=== PATIENT | male | born 1990 | race Caucasian/White ===

== ENCOUNTER 2019-06-20 11:37 | Emergency (ER) | payer OTHER ==
[~2019-06-20] VITALS: Ht 182.9 cm; Wt 83.9 kg
[2019-06-20] MEDS ORDERED: Naprosyn500 MG PO (12:48)
[2019-06-20] MEDS ORDERED: CYCL10 PO (12:48)
== END 2019-06-20 13:00 | disposition home or self-care (01) ==
LOC: ER 11:37
DX: M62.830 Muscle spasm of back (principal); E11.9 Type 2 diabetes mellitus without complications; F17.210 Nicotine dependence, cigarettes, uncomplicated
CPT/HCPCS: 72100; 99283-25

== ENCOUNTER 2019-09-25 18:21 | Emergency (ER) | payer OTHER ==
[~2019-09-25] VITALS: Ht 182.9 cm; Wt 83.9 kg
[~2019-09-25 18:21] MED LIST: CYCL10 PO; Naprosyn500 MG PO
[2019-09-25] MEDS ORDERED: Humalog100 UNIT/3 SC (18:32)
[2019-09-25] MEDS ORDERED: Monodox100 MG PO (20:01)
== END 2019-09-25 20:08 | disposition home or self-care (01) ==
LOC: ER 18:21
DX: L02.212 Cutaneous abscess of back [any part, except buttock and flank] (principal); L03.312 Cellulitis of back [any part except buttock and flank]; L98.429 Non-pressure chronic ulcer of back with unspecified severity; E11.9 Type 2 diabetes mellitus without complications; F17.210 Nicotine dependence, cigarettes, uncomplicated; Z79.4 Long term (current) use of insulin
CPT/HCPCS: 10061; 87070; 87075; 87077; 87186; 87205; 99283-25; A9270-GY

== ENCOUNTER 2019-09-27 08:57 | Emergency (ER) | payer OTHER ==
[~2019-09-27] VITALS: Ht 182.9 cm; Wt 84.4 kg
[~2019-09-27 08:57] MED LIST changes: +Humalog100 UNIT/3 SC; +Monodox100 MG PO
== END 2019-09-27 10:05 | disposition home or self-care (01) ==
LOC: ER 08:57
DX: M86.8X1 Other osteomyelitis, shoulder (principal); Z79.4 Long term (current) use of insulin; E11.9 Type 2 diabetes mellitus without complications; F17.210 Nicotine dependence, cigarettes, uncomplicated
CPT/HCPCS: 99282

== ENCOUNTER 2020-02-26 21:22 | Emergency (ER) | payer OTHER ==
[~2020-02-26] VITALS: Ht 188 cm; Wt 81.7 kg
[2020-02-26 21:55] LABS: BASOPHILS ABSOLUTE AUTO 0.05 K/mm3 (0.00-0.23); BASOPHILS PERCENT AUTO 0 % (0-2); EOSINOPHILS ABSOLUTE AUTO 0.08 K/mm3 (0.00-0.68); EOSINOPHILS PERCENT AUTO 1 % (0-6); Hemoglobin 17.8 g/dL (13.5-17.5); IMMATURE GRAN ABSOLUTE AUTO 0.03 K/mm3 (0.00-0.10); IMMATURE GRAN PERCENT AUTO 0 % (0-1); LYMPHOCYTES ABSOLUTE AUTO 2.75 K/mm3 (0.84-5.20); LYMPHOCYTES PERCENT AUTO 22 % (21-46); MONOCYTES ABSOLUTE AUTO 0.84 K/mm3 (0.16-1.47); MONOCYTES PERCENT AUTO 7 % (4-13); Mean Corpuscular HGB Conc 34.9 g/dL (31.5-36.5); Mean Corpuscular Volume 86 fL (80-100); Mean Platelet Volume 10.8 fL (9.1-12.4); NEUTROPHILS ABSOLUTE AUTO 8.53 K/mm3 (1.96-9.15); NEUTROPHILS PERCENT AUTO 70 % (41-73); Platelet Count 163 K/mm3 (150-400); RDW Coefficient Variation 12.7 % (11.7-14.2); RDW Standard Deviation 39.4 fL (35.1-46.3); Red Blood Cell Count 5.94 M/mm3 (4.30-5.90); White Blood Cell Count 12.28 K/mm3 (4.00-11.30)
[2020-02-26 22:12] LABS: Alanine Aminotransfer (ALT/SGP 29 U/L (12-78); Albumin, Blood 4.5 g/dL (3.4-5.0); Albumin/Globulin Ratio 1.2 (0.8-1.8); Alk Phos 102 U/L (50-136); Anion Gap 7 mmol/L (6-16); Aspartate Aminotrans (AST/SGOT 13 U/L (12-37); Beta-hydroxybutyrate 12.8 mg/dL (0.2-2.8); Blood Urea Nitrogen 18 mg/dL (8-24); Bun/Creatinine Ratio 23.9 (12.0-20.0); CO2, Blood 23 mmol/L (21-32); Calcium, Blood 9.6 mg/dL (8.5-10.1); Chloride, Blood 105 mmol/L (98-108); Creatinine, Blood 0.75 mg/dL (0.60-1.20); Globulin, Blood 3.7 g/dL (2.2-4.0); Glomerular Filtration Rate >60 (60-); Glucose, Blood 274 mg/dL (70-99); Potassium, Blood 4.3 mmol/L (3.5-5.5); Sodium, Blood 135 mmol/L (136-145); Total Protein, Blood 8.2 g/dL (6.4-8.2)
[2020-02-26] MEDS ORDERED: [UNRECOGNIZED DRUG - OTHER] SC (22:38)
[2020-02-26] MEDS ORDERED: Humalog100 UNIT/3 SC (22:38)
[2020-02-26] MEDS ORDERED: METO5A PO (22:38)
[2020-02-26] MEDS ORDERED: LANCET 30G-GLU1 EACH TOP (22:38)
== END 2020-02-26 23:11 | disposition home or self-care (01) ==
LOC: ER 21:22
PROVIDERS: Physician Assistant
DX: E11.65 Type 2 diabetes mellitus with hyperglycemia (principal); K31.84 Gastroparesis; F17.210 Nicotine dependence, cigarettes, uncomplicated
CPT/HCPCS: 36415; 80053; 82010; 82947; 85025; 96361; 96374; 96375; 99284-25; J2405; J2765; J7030

== ENCOUNTER → 2020-06-03 | Outpatient (CLI) | payer OTHER ==
[~2020-06-03] MED LIST changes: +LANCET 30G-GLU1 EACH TOP; +METO5A PO; +[UNRECOGNIZED DRUG - OTHER] SC
== END | disposition home or self-care (01) ==
LOC: LAB 12:15 → LAB SHORT 12:15 → LAB FUT 05-30 12:55
DX: R19.7 Diarrhea, unspecified (principal)
CPT/HCPCS: 87015; 87045; 87046; 87177; 87205; 87209; 87899

== ENCOUNTER 2020-07-10 19:34 | Inpatient (IN) | payer OTHER ==
[~2020-07-10] VITALS: Ht 185.4 cm; Wt 83.5 kg
[2020-07-10] MEDS ORDERED: MELO7.5 PO (19:58)
[2020-07-10 20:08] LABS: BASOPHILS ABSOLUTE AUTO 0.05 K/mm3 (0.00-0.23); BASOPHILS PERCENT AUTO 0 % (0-2); EOSINOPHILS ABSOLUTE AUTO 0.05 K/mm3 (0.00-0.68); EOSINOPHILS PERCENT AUTO 0 % (0-6); IMMATURE GRAN ABSOLUTE AUTO 0.04 K/mm3 (0.00-0.10); IMMATURE GRAN PERCENT AUTO 0 % (0-1); LYMPHOCYTES ABSOLUTE AUTO 1.76 K/mm3 (0.84-5.20); LYMPHOCYTES PERCENT AUTO 12 % (21-46); MONOCYTES PERCENT AUTO 9 % (4-13); Mean Corpuscular HGB 30.7 pg (26.0-34.0); Mean Corpuscular HGB Conc 35.4 g/dL (31.5-36.5); Mean Corpuscular Volume 87 fL (80-100); Mean Platelet Volume 10.9 fL (9.1-12.4); NEUTROPHILS ABSOLUTE AUTO 11.12 K/mm3 (1.96-9.15); NEUTROPHILS PERCENT AUTO 78 % (41-73); Platelet Count 150 K/mm3 (150-400); RDW Coefficient Variation 12.1 % (11.7-14.2); RDW Standard Deviation 37.9 fL (35.1-46.3); Red Blood Cell Count 5.54 M/mm3 (4.30-5.90); White Blood Cell Count 14.32 K/mm3 (4.00-11.30)
[2020-07-10 20:25] LABS: Alanine Aminotransfer (ALT/SGP 29 U/L (12-78); Albumin, Blood 4.2 g/dL (3.4-5.0); Albumin/Globulin Ratio 1.2 (0.8-1.8); Alk Phos 108 U/L (50-136); Anion Gap 6 mmol/L (6-16); Aspartate Aminotrans (AST/SGOT 16 U/L (12-37); Blood Urea Nitrogen 13 mg/dL (8-24); Bun/Creatinine Ratio 17.6 (12.0-20.0); CO2, Blood 27 mmol/L (21-32); Calcium, Blood 9.2 mg/dL (8.5-10.1); Chloride, Blood 102 mmol/L (98-108); Creatinine, Blood 0.74 mg/dL (0.60-1.20); Globulin, Blood 3.5 g/dL (2.2-4.0); Glomerular Filtration Rate >60 (60-); Glucose, Blood 250 mg/dL (70-99); Sodium, Blood 135 mmol/L (136-145); Total Protein, Blood 7.7 g/dL (6.4-8.2)
[2020-07-10] MEDS ORDERED: Mobic15 MG PO (21:24)
[2020-07-10] MEDS ORDERED: GLYBURIDE-METF1 EACH PO (21:25)
[2020-07-10] MEDS ORDERED: HUMALOG KW100 UNIT/1 SC (21:26)
[2020-07-11 03:49] LABS: Source, Urine Clean Catch
[2020-07-11 04:05] LABS: Bilirubin, Urine Neg (Neg); Blood, Urine 1+ (Neg); Glucose Qualitative, Urine 4+ (Neg); Ketones, Urine Neg (Neg); Leukocyte Esterase, Urine Neg (Neg); Nitrite, Urine Neg (Neg); Protein, Urine 1+ (Neg); Urobilinogen, Urine NORM (Normal)
[2020-07-11 04:19] LABS: Appearance, Urine Clear (Clear); Color, Urine Yellow (P-Yellow)
[2020-07-11 04:20] LABS: Bacteria Not Seen /hpf; Red Blood Cells, Urine Rare /hpf (0-2); Squamous Epithelial Cells Not Seen /hpf (Few); White Blood Cells, Urine Not Seen /hpf (0-5)
--- NOTE | 2020-07-11 06:44 | NUR ---
PT ARRIVED TO ROOM @ 2480 07/10/2020 VIA STRETCHER, ORIENTED TO ROOM, CALL LIGHT IN REACH, ADMISSION BEING PERFORMED.
--- NOTE | 2020-07-11 07:00 | NUR ---
SHIFT SUMMARY ACUTE APPENDICITIS, A/O X4, VSS, INDEPENDENT IN ROOM, NPO SINCE MIDNIGHT FOR PROCEDURE, PAIN CONTROLLED W/ DILAUDID PER EMAR. ORIENTED TO ROOM, CALL LIGHT IN REACH. WILL CONTINUE TO MONITOR AND REPORT TO ONCOMING DAY RN.
--- NOTE | 2020-07-11 09:53 | NUR ---
PT TRANSPORTED TO [facility]. AGREES WITH PLANNED PROCEDURE. PT ANXIOUS AND TEARFUL. LUNG SOUNDS CLEAR.
--- NOTE | 2020-07-11 14:18 | NUR ---
POST OP: REPORT RECEIVED FROM LAURA, RADIOISOTOPE TECHNOLOGIST. PT TO UNIT AT 1330, VSS, DROWSY, AWAKENS TO VOICE. SURGICAL SITES WNL. ABOUT TO TAKE IN ICE CHIPS. WILL CTM
--- NOTE | 2020-07-11 15:20 | NUR ---
07/11/20 1520 Savana Hawk VERIFICATIONS: EDIT CHART.
--- NOTE | 2020-07-11 16:34 | NUR ---
SUMMARY: NO ACUTE CHANGE SINCE POST OP. PT ABLE TO TOLERATE PO, HAS TAKEN A WALK IN THE [place]. REPORTS PAIN /, MEDICATED. NO N/V. SURGICAL SITES WNL. WILL REPORT TO BASIL EASON.
--- NOTE | 2020-07-12 06:25 | NUR ---
SUMMARY PT WOKE THIS AM WITH C/O INCREASE PAIN R SIDED AND BACK.PT WITH CHRONIC BACK ISSUES,WHICH HE TAKES ANTI INFLAMMATORIES FOR AT HOME.I GAVE TORADOL AND DILAUDID WITH PT VERB IMRPOVEMNT AND SLEEPING AT THIS TIME.
[2020-07-12 06:59] LABS: Hematocrit 40.3 % (37.0-53.0); Hemoglobin 13.8 g/dL (13.5-17.5)
[2020-07-12] MEDS ORDERED: OXAYDO5 MG PO (08:38)
[2020-07-12] MEDS ORDERED: ACET500 PO (09:44)
--- NOTE | 2020-07-12 12:30 | NUR ---
DISCHARGE PT EDUCATED ON AND RECEIVED PRINTED DISCHARGE INSTRUCTIONS AND VERBALIZED AN UNDERSTANDING. HARD RX FOR OXYCODONE GIVEN TO PT. IV DC'D. PT LEFT WITH ALL PERSONAL BELONGINGS AND DISCHARGED HOME.
[2020-07-13] MEDS ORDERED: Zofran4 MG PO (17:41)
== END 2020-07-12 12:31 | disposition home or self-care (01) | DRG 343 ==
LOC: ER 19:34 → SURS 19:35
PROVIDERS: Emergency Medicine; Physician Assistant; Surgery; ADMIT Surgery
PROC: 0DTJ4ZZ Resection of Appendix, Percutaneous Endoscopic Approach (ICD-10-PCS; principal; 2020-07-11 10:00)
DX: K35.80 Unspecified acute appendicitis (principal); Z20.828 Contact with and (suspected) exposure to other viral communicable diseases; E11.9 Type 2 diabetes mellitus without complications; M19.90 Unspecified osteoarthritis, unspecified site; F17.210 Nicotine dependence, cigarettes, uncomplicated; Z79.4 Long term (current) use of insulin; Z79.1 Long term (current) use of non-steroidal anti-inflammatories (NSAID)
CPT/HCPCS: 36415; 71046; 74176; 80053; 81001; 82947; 85014; 85018; 85025; 96374-59; 96375-59; 96376-59; 99285-25; A9270-GY; J1100; J1170; J1885; J2060; J2250; J2405; J2543; J2704; J2710; J2765; J3010; J7030; J7120; U0002

== ENCOUNTER 2020-07-13 14:08 | Emergency (ER) | payer OTHER ==
[~2020-07-13] VITALS: Ht 185.4 cm; Wt 83.5 kg
[~2020-07-13 14:08] MED LIST changes: +ACET500 PO; +GLYBURIDE-METF1 EACH PO; +HUMALOG KW100 UNIT/1 SC; +MELO7.5 PO; +Mobic15 MG PO; +OXAYDO5 MG PO
[2020-07-13 14:48] LABS: BASOPHILS ABSOLUTE AUTO 0.03 K/mm3 (0.00-0.23); BASOPHILS PERCENT AUTO 0 % (0-2); EOSINOPHILS ABSOLUTE AUTO 0.07 K/mm3 (0.00-0.68); EOSINOPHILS PERCENT AUTO 1 % (0-6); Hematocrit 45.3 % (37.0-53.0); Hemoglobin 15.5 g/dL (13.5-17.5); IMMATURE GRAN ABSOLUTE AUTO 0.03 K/mm3 (0.00-0.10); IMMATURE GRAN PERCENT AUTO 0 % (0-1); LYMPHOCYTES PERCENT AUTO 16 % (21-46); MONOCYTES ABSOLUTE AUTO 1.27 K/mm3 (0.16-1.47); MONOCYTES PERCENT AUTO 10 % (4-13); Mean Corpuscular HGB 30.3 pg (26.0-34.0); Mean Corpuscular HGB Conc 34.2 g/dL (31.5-36.5); Mean Corpuscular Volume 89 fL (80-100); Mean Platelet Volume 10.7 fL (9.1-12.4); NEUTROPHILS PERCENT AUTO 72 % (41-73); Platelet Count 145 K/mm3 (150-400); RDW Coefficient Variation 12.2 % (11.7-14.2); Red Blood Cell Count 5.12 M/mm3 (4.30-5.90)
[2020-07-13 15:01] LABS: Alanine Aminotransfer (ALT/SGP 30 U/L (12-78); Albumin, Blood 3.6 g/dL (3.4-5.0); Albumin/Globulin Ratio 0.9 (0.8-1.8); Alk Phos 94 U/L (50-136); Anion Gap 5 mmol/L (6-16); Aspartate Aminotrans (AST/SGOT 18 U/L (12-37); Blood Urea Nitrogen 12 mg/dL (8-24); Bun/Creatinine Ratio 20.9 (12.0-20.0); CO2, Blood 29 mmol/L (21-32); Calcium, Blood 9.7 mg/dL (8.5-10.1); Chloride, Blood 105 mmol/L (98-108); Creatinine, Blood 0.57 mg/dL (0.60-1.20); Globulin, Blood 4.1 g/dL (2.2-4.0); Glomerular Filtration Rate >60 (60-); Glucose, Blood 167 mg/dL (70-99); Potassium, Blood 3.8 mmol/L (3.5-5.5); Sodium, Blood 139 mmol/L (136-145); Total Protein, Blood 7.7 g/dL (6.4-8.2)
[2020-07-13 16:39] LABS: Source, Urine Clean Catch
[2020-07-13 16:42] LABS: Appearance, Urine Clear (Clear); Bilirubin, Urine Neg (Neg); Blood, Urine 1+ (Neg); Color, Urine Yellow (P-Yellow); Glucose Qualitative, Urine 4+ (Neg); Ketones, Urine 3+ (Neg); Leukocyte Esterase, Urine Neg (Neg); Nitrite, Urine Neg (Neg); Protein, Urine 1+ (Neg); Urobilinogen, Urine NORM (Normal); pH, Urine 6.5 (5.0-8.0)
[2020-07-13 16:52] LABS: Bacteria Few /hpf; Red Blood Cells, Urine 0-2 /hpf (0-2); Squamous Epithelial Cells Not Seen /hpf (Few); White Blood Cells, Urine 0-2 /hpf (0-5)
[2020-07-13] MEDS ORDERED: Zofran4 MG PO (17:41)
== END 2020-07-13 18:02 | disposition home or self-care (01) ==
LOC: ER 14:08
PROVIDERS: Emergency Medicine; Physician Assistant
DX: G89.18 Other acute postprocedural pain (principal); R10.9 Unspecified abdominal pain; R11.0 Nausea; E11.9 Type 2 diabetes mellitus without complications; Z79.899 Other long term (current) drug therapy; Z79.4 Long term (current) use of insulin
CPT/HCPCS: 36415; 74177; 80053; 81001; 83690; 85025; 96374; 96375; 96376; 99284-25; J1170; J1885; J2405; Q9967

== ENCOUNTER 2021-01-07 02:06 | Emergency (ER) | payer OTHER ==
[~2021-01-07] VITALS: Ht 185.4 cm; Wt 78.9 kg
[~2021-01-07 02:06] MED LIST changes: +AMOCLA875 PO; +Zofran4 MG PO
[2021-01-07 04:03] LABS: BASOPHILS ABSOLUTE AUTO 0.05 K/mm3 (0.00-0.23); BASOPHILS PERCENT AUTO 0 % (0-2); EOSINOPHILS ABSOLUTE AUTO 0.03 K/mm3 (0.00-0.68); EOSINOPHILS PERCENT AUTO 0 % (0-6); Hematocrit 54.7 % (37.0-53.0); Hemoglobin 19.2 g/dL (13.5-17.5); IMMATURE GRAN ABSOLUTE AUTO 0.07 K/mm3 (0.00-0.10); IMMATURE GRAN PERCENT AUTO 0 % (0-1); LYMPHOCYTES ABSOLUTE AUTO 2.16 K/mm3 (0.84-5.20); LYMPHOCYTES PERCENT AUTO 12 % (21-46); MONOCYTES ABSOLUTE AUTO 1.39 K/mm3 (0.16-1.47); MONOCYTES PERCENT AUTO 8 % (4-13); Mean Corpuscular HGB 29.9 pg (26.0-34.0); Mean Corpuscular HGB Conc 35.1 g/dL (31.5-36.5); Mean Corpuscular Volume 85 fL (80-100); Mean Platelet Volume 11.1 fL (9.1-12.4); NEUTROPHILS PERCENT AUTO 79 % (41-73); Platelet Count 198 K/mm3 (150-400); RDW Coefficient Variation 12.7 % (11.7-14.2); RDW Standard Deviation 38.9 fL (35.1-46.3); Red Blood Cell Count 6.42 M/mm3 (4.30-5.90)
[2021-01-07 04:22] LABS: Albumin/Globulin Ratio 1.2 (0.8-1.8); Bilirubin, Total 2.5 mg/dL (0.1-1.0); Bun/Creatinine Ratio 26.1 (12.0-20.0); Calcium, Blood 10.7 mg/dL (8.5-10.1); Creatinine, Blood 1.53 mg/dL (0.60-1.20); Globulin, Blood 4.2 g/dL (2.2-4.0); Potassium, Blood 4.2 mmol/L (3.5-5.5); Total Protein, Blood 9.2 g/dL (6.4-8.2)
[2021-01-07] MEDS ORDERED: ONDA4ODT MM (06:17)
[2021-01-08] MEDS ORDERED: CIPR500 PO (22:18)
[2021-01-08] MEDS ORDERED: PROM25 PO (22:20)
[2021-02-25] MEDS ORDERED: GLYBURIDE-METF1 EACH PO (14:16)
[2021-03-01] MEDS ORDERED: METO5A PO (13:53)
[2021-03-01] MEDS ORDERED: CLINDAMYCIN HCL75 MG PO (13:56)
[2021-03-01] MEDS ORDERED: OMEP20ER PO (13:57)
[2021-04-08] MEDS ORDERED: CEPH500 PO (19:35)
[2021-04-08] MEDS ORDERED: ONDA4ODT MM (19:35)
[2021-04-08] MEDS ORDERED: Reglan10 MG PO (21:37)
== END 2021-01-07 06:39 | disposition home or self-care (01) ==
LOC: ER 02:06
PROVIDERS: Student in an Organized Health Care Education/Training Program
DX: R10.9 Unspecified abdominal pain (principal); R11.2 Nausea with vomiting, unspecified; E86.0 Dehydration; E11.9 Type 2 diabetes mellitus without complications; F17.210 Nicotine dependence, cigarettes, uncomplicated
CPT/HCPCS: 36415; 74177; 80053; 82947; 83690; 85025; 96361; 96374-59; 96375; 99284-25; J1790; J2270; J2405; J7030; Q9967

== ENCOUNTER 2021-01-08 20:34 | Emergency (ER) | payer OTHER ==
[~2021-01-08] VITALS: Ht 185.4 cm; Wt 72.6 kg
[~2021-01-08 20:34] MED LIST changes: +ONDA4ODT MM
[2021-01-08 21:10] LABS: BASOPHILS ABSOLUTE AUTO 0.04 K/mm3 (0.00-0.23); BASOPHILS PERCENT AUTO 0 % (0-2); EOSINOPHILS ABSOLUTE AUTO 0.04 K/mm3 (0.00-0.68); EOSINOPHILS PERCENT AUTO 0 % (0-6); Hematocrit 51.1 % (37.0-53.0); Hemoglobin 18.6 g/dL (13.5-17.5); IMMATURE GRAN ABSOLUTE AUTO 0.04 K/mm3 (0.00-0.10); IMMATURE GRAN PERCENT AUTO 0 % (0-1); LYMPHOCYTES ABSOLUTE AUTO 3.05 K/mm3 (0.84-5.20); LYMPHOCYTES PERCENT AUTO 26 % (21-46); MONOCYTES ABSOLUTE AUTO 1.29 K/mm3 (0.16-1.47); MONOCYTES PERCENT AUTO 11 % (4-13); Mean Corpuscular HGB 30.2 pg (26.0-34.0); Mean Corpuscular HGB Conc 36.4 g/dL (31.5-36.5); Mean Corpuscular Volume 83 fL (80-100); Mean Platelet Volume 10.7 fL (9.1-12.4); NEUTROPHILS PERCENT AUTO 63 % (41-73); Platelet Count 198 K/mm3 (150-400); RDW Coefficient Variation 12.4 % (11.7-14.2); RDW Standard Deviation 37.2 fL (35.1-46.3); Red Blood Cell Count 6.16 M/mm3 (4.30-5.90); White Blood Cell Count 11.86 K/mm3 (4.00-11.30)
[2021-01-08 21:32] LABS: Alanine Aminotransfer (ALT/SGP 22 U/L (12-78); Albumin, Blood 4.6 g/dL (3.4-5.0); Albumin/Globulin Ratio 1.2 (0.8-1.8); Alk Phos 104 U/L (50-136); Anion Gap 13 mmol/L (6-16); Aspartate Aminotrans (AST/SGOT 11 U/L (12-37); Beta-hydroxybutyrate 9.6 mg/dL (0.2-2.8); Bilirubin, Total 2.6 mg/dL (0.1-1.0); Blood Urea Nitrogen 52 mg/dL (8-24); Bun/Creatinine Ratio 34.7 (12.0-20.0); CO2, Blood 24 mmol/L (21-32); Calcium, Blood 9.4 mg/dL (8.5-10.1); Chloride, Blood 92 mmol/L (98-108); Ethanol (Alcohol), Blood, Med <3 mg/dL; Globulin, Blood 3.7 g/dL (2.2-4.0); Glomerular Filtration Rate 58 (60-); Glucose, Blood 377 mg/dL (70-99); Magnesium, Blood 2.5 mg/dL (1.6-2.4); Potassium, Blood 4.2 mmol/L (3.5-5.5); Sodium, Blood 129 mmol/L (136-145); Total Protein, Blood 8.3 g/dL (6.4-8.2)
[2021-01-08] MEDS ORDERED: CIPR500 PO (22:18)
[2021-01-08] MEDS ORDERED: PROM25 PO (22:20)
[2021-02-25] MEDS ORDERED: GLYBURIDE-METF1 EACH PO (14:16)
[2021-03-01] MEDS ORDERED: METO5A PO (13:53)
[2021-03-01] MEDS ORDERED: CLINDAMYCIN HCL75 MG PO (13:56)
[2021-03-01] MEDS ORDERED: OMEP20ER PO (13:57)
[2021-04-08] MEDS ORDERED: ONDA4ODT MM (19:35)
[2021-04-08] MEDS ORDERED: CEPH500 PO (19:35)
[2021-04-08] MEDS ORDERED: Reglan10 MG PO (21:37)
== END 2021-01-08 23:04 | disposition home or self-care (01) ==
LOC: ER 20:34
PROVIDERS: Emergency Medicine
DX: E11.43 Type 2 diabetes mellitus with diabetic autonomic (poly)neuropathy (principal); K31.84 Gastroparesis; E11.65 Type 2 diabetes mellitus with hyperglycemia; E86.0 Dehydration; F17.210 Nicotine dependence, cigarettes, uncomplicated
CPT/HCPCS: 80053; 82010; 83690; 83735; 84145; 85025; 96361; 96374; 96375; 99283-25; G0480; J1200; J1630; J7120

== ENCOUNTER → 2021-02-18 | Outpatient (CLI) | payer OTHER ==
[~2021-02-18] MED LIST changes: +Bactrim Ds Tab1 EACH PO; +CEPH500 PO; +CIPR500 PO; +PROM25 PO
[2021-02-18 18:57] LABS: BASOPHILS ABSOLUTE AUTO 0.03 K/mm3 (0.00-0.23); BASOPHILS PERCENT AUTO 0 % (0-2); EOSINOPHILS PERCENT AUTO 2 % (0-6); Hemoglobin 15.6 g/dL (13.5-17.5); IMMATURE GRAN ABSOLUTE AUTO 0.04 K/mm3 (0.00-0.10); IMMATURE GRAN PERCENT AUTO 0 % (0-1); LYMPHOCYTES ABSOLUTE AUTO 1.87 K/mm3 (0.84-5.20); LYMPHOCYTES PERCENT AUTO 15 % (21-46); MONOCYTES ABSOLUTE AUTO 0.95 K/mm3 (0.16-1.47); MONOCYTES PERCENT AUTO 8 % (4-13); Mean Corpuscular HGB 30.1 pg (26.0-34.0); Mean Corpuscular HGB Conc 34.7 g/dL (31.5-36.5); Mean Corpuscular Volume 87 fL (80-100); Mean Platelet Volume 11.9 fL (9.1-12.4); NEUTROPHILS ABSOLUTE AUTO 9.27 K/mm3 (1.96-9.15); NEUTROPHILS PERCENT AUTO 75 % (41-73); Platelet Count 147 K/mm3 (150-400); RDW Coefficient Variation 12.6 % (11.7-14.2); RDW Standard Deviation 39.8 fL (35.1-46.3); Red Blood Cell Count 5.18 M/mm3 (4.30-5.90); White Blood Cell Count 12.36 K/mm3 (4.00-11.30)
[2021-02-18 20:22] LABS: Alanine Aminotransfer (ALT/SGP 24 U/L (12-78); Albumin/Globulin Ratio 1.2 (0.8-1.8); Alk Phos 101 U/L (50-136); Amylase, Blood 55 U/L (25-115); Anion Gap 4 mmol/L (6-16); Aspartate Aminotrans (AST/SGOT 9 U/L (12-37); Bilirubin, Total 0.8 mg/dL (0.1-1.0); Blood Urea Nitrogen 14 mg/dL (8-24); Bun/Creatinine Ratio 20.9 (12.0-20.0); CO2, Blood 27 mmol/L (21-32); Calcium, Blood 9.1 mg/dL (8.5-10.1); Chloride, Blood 103 mmol/L (98-108); Creatinine, Blood 0.67 mg/dL (0.60-1.20); Globulin, Blood 3.2 g/dL (2.2-4.0); Glomerular Filtration Rate >60 (60-); Glucose, Blood 328 mg/dL (70-99); Sodium, Blood 134 mmol/L (136-145); Total Protein, Blood 7.2 g/dL (6.4-8.2)
== END | disposition home or self-care (01) ==
LOC: LAB SHORT 13:28
PROVIDERS: Family Medicine
DX: K85.90 Acute pancreatitis without necrosis or infection, unspecified (principal); R10.9 Unspecified abdominal pain
CPT/HCPCS: 36415; 80053; 82150; 83690; 85025

== ENCOUNTER 2021-02-21 08:00 | Emergency (ER) | payer OTHER ==
[~2021-02-21] VITALS: Ht 185.4 cm; Wt 82.5 kg
[~2021-02-21 08:00] MED LIST changes: -Bactrim Ds Tab1 EACH PO; -CEPH500 PO
[2021-02-21] MEDS ORDERED: Bactrim Ds Tab1 EACH PO (08:30)
[2021-02-21] MEDS ORDERED: CEPH500 PO (08:30)
[2021-02-25] MEDS ORDERED: GLYBURIDE-METF1 EACH PO (14:16)
== END 2021-02-21 09:11 | disposition home or self-care (01) ==
LOC: ER 08:00
DX: M54.6 Pain in thoracic spine (principal); E11.9 Type 2 diabetes mellitus without complications; F17.210 Nicotine dependence, cigarettes, uncomplicated
CPT/HCPCS: 10060; 99282-25

== ENCOUNTER 2021-04-10 07:37 | Inpatient (IN) | payer OTHER ==
[~2021-04-10] VITALS: Ht 185.4 cm; Wt 77.2 kg
[~2021-04-10 07:37] MED LIST changes: +Bactrim Ds Tab1 EACH PO; +CEPH500 PO; +CLINDAMYCIN HCL75 MG PO; +OMEP20ER PO; +Reglan10 MG PO
[2021-04-10] MEDS ORDERED: BASAGLAR K100 UNIT/1 SC (07:46)
[2021-04-10 08:20] LABS: BASOPHILS ABSOLUTE AUTO 0.07 K/mm3 (0.00-0.23); BASOPHILS PERCENT AUTO 1 % (0-2); EOSINOPHILS PERCENT AUTO 0 % (0-6); Hematocrit 54.2 % (37.0-53.0); Hemoglobin 19.6 g/dL (13.5-17.5); IMMATURE GRAN ABSOLUTE AUTO 0.05 K/mm3 (0.00-0.10); IMMATURE GRAN PERCENT AUTO 0 % (0-1); LYMPHOCYTES ABSOLUTE AUTO 2.19 K/mm3 (0.84-5.20); LYMPHOCYTES PERCENT AUTO 15 % (21-46); MONOCYTES ABSOLUTE AUTO 1.26 K/mm3 (0.16-1.47); MONOCYTES PERCENT AUTO 9 % (4-13); Mean Corpuscular HGB 29.9 pg (26.0-34.0); Mean Corpuscular HGB Conc 36.2 g/dL (31.5-36.5); Mean Corpuscular Volume 83 fL (80-100); Mean Platelet Volume 10.6 fL (9.1-12.4); NEUTROPHILS ABSOLUTE AUTO 11.32 K/mm3 (1.96-9.15); NEUTROPHILS PERCENT AUTO 76 % (41-73); Platelet Count 202 K/mm3 (150-400); RDW Coefficient Variation 12.1 % (11.7-14.2); Red Blood Cell Count 6.55 M/mm3 (4.30-5.90); White Blood Cell Count 14.89 K/mm3 (4.00-11.30)
[2021-04-10 08:46] LABS: Albumin, Blood 5.6 g/dL (3.4-5.0); Albumin/Globulin Ratio 1.3 (0.8-1.8); Bilirubin, Total 1.8 mg/dL (0.1-1.0); Bun/Creatinine Ratio 16.9 (12.0-20.0); Calcium, Blood 11.3 mg/dL (8.5-10.1); Creatinine, Blood 3.43 mg/dL (0.60-1.20); Globulin, Blood 4.4 g/dL (2.2-4.0)
[2021-04-10 08:47] LABS: Potassium, Blood 6.8 mmol/L (3.5-5.5)
[2021-04-10 09:52] LABS: Magnesium, Blood 2.8 mg/dL (1.6-2.4)
[2021-04-10 09:56] LABS: Phosphorus, Blood 8.9 mg/dL (2.5-4.9)
[2021-04-10 10:31] LABS: Source, Urine Clean Catch
[2021-04-10 10:39] LABS: Appearance, Urine Clear (Clear); Bilirubin, Urine Neg (Neg); Blood, Urine 2+ (Neg); Color, Urine Yellow (P-Yellow); Glucose Qualitative, Urine 4+ (Neg); Ketones, Urine Neg (Neg); Leukocyte Esterase, Urine Neg (Neg); Nitrite, Urine Neg (Neg); Protein, Urine 2+ (Neg); Specific Gravity, Urine 1.015 (1.003-1.022); Urobilinogen, Urine NORM (Normal)
[2021-04-10 10:56] LABS: Bacteria Few /hpf
[2021-04-10 11:02] LABS: Squamous Epithelial Cells Few /hpf (Few); White Blood Cells, Urine 0-2 /hpf (0-5)
[2021-04-10 11:04] LABS: Amorphous Light (0-Heavy)
[2021-04-10 11:05] LABS: Other Crystals Few /hpf
[2021-04-10 11:08] LABS: U Amphetamine Screen Not Detected; U Barbituate Screen Not Detected; U Benzodiazapine Screen Not Detected; U Buprenorphine Screen Not Detected; U Cannabinoids Screen Not Detected; U Cocaine Screen Not Detected; U Methadone Screen Not Detected; U Methamphetamine Screen Not Detected; U Opiates Screen Not Detected; U Oxycodone Screen Not Detected; U Phencyclidine Screen Not Detected; U Propoxyphene Screen Not Detected
[2021-04-10 14:31] LABS: Bun/Creatinine Ratio 24.8 (12.0-20.0); Creatinine, Blood 2.26 mg/dL (0.60-1.20)
[2021-04-10 14:32] LABS: Potassium, Blood 4.4 mmol/L (3.5-5.5)
--- NOTE | 2021-04-10 18:33 | NUR ---
SHIFT NOTE PT ARRIVED FROM ER CRYING AND MOANING LOUDLY SHOUTING THAT HE NEEDED "MORE PAIN MEDICATION" PROVIDER WAS CALLED AND 1 ADDITIONAL DOSE OF FENTANYL WAS ORDERED TO AVOID NARCOTICS CAUSING ADDITIONAL NAUSEA. PT SHOUTING "FUCK THAT" WHEN EDUCATED THAT HE WILL RECIEVE ONE ADDITIONAL DOSE OF FENTANYL. PT BEGINS THEN SHOUTING "I WANT A FUCKING SHOWER" BUT DEMONSTRATED AN UNSTEADY GAIT. PT MEDICATED FOR VOMITTING THEN FALLS ASLEEP, PT AWOKE AND IMMEDIATELY REQUESTS PAIN MEDICATION AND NAUSEA MEDICATION, PT OFFERED TYLENOL WHICH HE ACCEPTED AND AGAIN TREATED FOR NAUSEA AND FELL ASLEEP. PT AWOKE AND CONTINUED SCREAMING AND CURSING AT MULTIPLE STAFF MEMBERS. PT WAS ASSISTED TO USE THE URINAL WHICH HE AGAIN DEMONSTRATED AN UNSTEADY GAIT PT REMINDED THAT THIS IS WHY HE HAS NOT BEEN PLACED IN THE SHOWER HE IS A FALL RISK, PT AGAIN BEGINS SCREAMING "I WANT A FUCKING SHOWER"
[2021-04-10 21:36] LABS: Source, Urine Clean Catch
[2021-04-10 21:41] LABS: Bilirubin, Urine Neg (Neg); Blood, Urine 1+ (Neg); Glucose Qualitative, Urine 4+ (Neg); Ketones, Urine Neg (Neg); Leukocyte Esterase, Urine Neg (Neg); Nitrite, Urine Neg (Neg); Protein, Urine 2+ (Neg); Urobilinogen, Urine NORM (Normal)
[2021-04-10 21:47] LABS: Appearance, Urine Clear (Clear); Color, Urine Yellow (P-Yellow)
[2021-04-10 21:48] LABS: Amorphous Light (0-Heavy); Bacteria Rare /hpf; Red Blood Cells, Urine Rare /hpf (0-2); Squamous Epithelial Cells Rare /hpf (Few); White Blood Cells, Urine Not Seen /hpf (0-5)
[2021-04-10 22:11] LABS: U Amphetamine Screen Not Detected; U Barbituate Screen Not Detected; U Benzodiazapine Screen Not Detected; U Buprenorphine Screen Not Detected; U Cannabinoids Screen Not Detected; U Cocaine Screen Not Detected; U Methadone Screen Not Detected; U Methamphetamine Screen Not Detected; U Opiates Screen Not Detected; U Oxycodone Screen Not Detected; U Phencyclidine Screen Not Detected; U Propoxyphene Screen Not Detected
[2021-04-11 03:54] LABS: BASOPHILS ABSOLUTE AUTO 0.04 K/mm3 (0.00-0.23); BASOPHILS PERCENT AUTO 0 % (0-2); EOSINOPHILS ABSOLUTE AUTO 0.02 K/mm3 (0.00-0.68); EOSINOPHILS PERCENT AUTO 0 % (0-6); Hematocrit 45.9 % (37.0-53.0); Hemoglobin 16.4 g/dL (13.5-17.5); IMMATURE GRAN ABSOLUTE AUTO 0.05 K/mm3 (0.00-0.10); IMMATURE GRAN PERCENT AUTO 0 % (0-1); LYMPHOCYTES ABSOLUTE AUTO 2.86 K/mm3 (0.84-5.20); LYMPHOCYTES PERCENT AUTO 22 % (21-46); MONOCYTES ABSOLUTE AUTO 1.08 K/mm3 (0.16-1.47); MONOCYTES PERCENT AUTO 9 % (4-13); Mean Corpuscular HGB 30.1 pg (26.0-34.0); Mean Corpuscular HGB Conc 35.7 g/dL (31.5-36.5); Mean Corpuscular Volume 84 fL (80-100); Mean Platelet Volume 10.7 fL (9.1-12.4); NEUTROPHILS ABSOLUTE AUTO 8.73 K/mm3 (1.96-9.15); NEUTROPHILS PERCENT AUTO 68 % (41-73); Platelet Count 165 K/mm3 (150-400); RDW Coefficient Variation 12.5 % (11.7-14.2); RDW Standard Deviation 38.4 fL (35.1-46.3); Red Blood Cell Count 5.44 M/mm3 (4.30-5.90); White Blood Cell Count 12.78 K/mm3 (4.00-11.30)
[2021-04-11 04:22] LABS: Magnesium, Blood 2.2 mg/dL (1.6-2.4)
[2021-04-11 04:25] LABS: Alanine Aminotransfer (ALT/SGP 17 U/L (12-78); Albumin/Globulin Ratio 1.2 (0.8-1.8); Alk Phos 80 U/L (50-136); Anion Gap 6 mmol/L (6-16); Aspartate Aminotrans (AST/SGOT 3 U/L (12-37); Bilirubin, Total 1.4 mg/dL (0.1-1.0); Blood Urea Nitrogen 42 mg/dL (8-24); Bun/Creatinine Ratio 35.3 (12.0-20.0); CO2, Blood 26 mmol/L (21-32); Calcium, Blood 8.5 mg/dL (8.5-10.1); Chloride, Blood 100 mmol/L (98-108); Creatinine, Blood 1.19 mg/dL (0.60-1.20); Globulin, Blood 3.3 g/dL (2.2-4.0); Glomerular Filtration Rate >60 (60-); Glucose, Blood 260 mg/dL (70-99); Phosphorus, Blood 2.9 mg/dL (2.5-4.9); Potassium, Blood 4.1 mmol/L (3.5-5.5); Sodium, Blood 132 mmol/L (136-145); Total Protein, Blood 7.3 g/dL (6.4-8.2)
--- NOTE | 2021-04-11 05:50 | NUR ---
SHIFT SUMMARY PT REMAINED STABLE, NO ACUTE CHANGES THIS SHIFT. PT'S GLUCOSE CONTINUES TO IMPROVE, MONITORED EVERY 4 HRS. NO TREATMENT INDICATED PER EMAR. PT REPORTED NAUSEA, AND ABD PAIN THAT WAS RELIEVED WITH ANTI-NAUSEA MEDICATION, SEE EMAR. VSS. A&O X4. DENIES CHEST PAIN OR DIZZINESS. PT WANTS TO STAND UP AND INDEPENDENTLY SHOWER, BUT FOR SAFETY (DUE TO DIZZINESS AND UNSTEADINESS) HE IS BEDREST WITH BED ALARM ON. PT BECAME ANGRY WITH STAFF WHEN HIS WISHES FOR AN INDEPENDENT SHOWER WERE NOT MET. FLUIDS INFUSING INTO IV, PER EMAR. CALL LIGHT IN HAND, WILL CONTINUE TO MONITOR.
--- NOTE | 2021-04-11 12:49 | NUR ---
RECEIVED CARE FOR PATIENT THIS RN RECEIVED PT ON MEDICAL UNIT AT 1245. PT IS SLEEPING WITH RESPIRATIONS E/U. PT SETTLED IN ROOM. CALL LIGHT IN REACH, BED IN LOW POSITION. THIS RN WILL CONTINUE TO MONITOR PT.
--- NOTE | 2021-04-11 17:52 | NUR ---
SHIFT SUMMARY PT IS AOX4. PT MEDICATED FOR PAIN X3 THIS SHIFT. PT MEDICATED FOR NAUSEA X4 THIS SHIFT. PT DENIES SOB. PT IS SBA TO INDEPENDENT IN ROOM. APPETITE IS POOR. PT REPORTEDLY SLEPT THROUGH LUNCH AND HAD MINIMAL DINNER INTAKE. NO PROCEDURES DONE THIS SHIFT. PLAN IS FOR POTENTIAL DC TOMORROW. PT TOLERATED ORAL PAIN MEDICATION THIS GAIL. PT DID NOT HAVE VISITORS IN. PT IS IN BED, CALL LIGHT IN REACH, BED IN LOW POSITION.
[2021-04-12 05:03] LABS: Anion Gap 4 mmol/L (6-16); Blood Urea Nitrogen 24 mg/dL (8-24); Bun/Creatinine Ratio 31.2 (12.0-20.0); CO2, Blood 28 mmol/L (21-32); Calcium, Blood 8.1 mg/dL (8.5-10.1); Chloride, Blood 104 mmol/L (98-108); Creatinine, Blood 0.77 mg/dL (0.60-1.20); Glomerular Filtration Rate >60 (60-); Glucose, Blood 145 mg/dL (70-99); Potassium, Blood 3.8 mmol/L (3.5-5.5); Sodium, Blood 136 mmol/L (136-145)
--- NOTE | 2021-04-12 05:47 | NUR ---
INVERTER AND CLIPPER SUMMARY PT A/O X4. SHOWERED OVERNIGHT. MEDICATED FOR NAUSEA ONCE OVERNIGHT. MEDICATED FOR PAIN X2 OVERNIGHT. PT EDUCATED TO TRY TO TAPER OFF OF IV DILAUDID TONIGHT, PT ENDED UP REQUESTING FOR THIS AFTER ORAL PAIN MED DIDN'T HELP HIM. PT SLEPT WELL TONIGHT. VSS. ROOM AIR, MAINTAINING GOOD SATS. CALL LIGHT WITHIN REACH, WILL CONTINUE TO MONITOR.
--- NOTE | 2021-04-12 18:29 | NUR ---
SHIFT SUMMARY PT RESTING QUIETLY AT START OF SHIFT. WOKE EASILY FOR CARE. C/O BACK PAIN; MEDICATED PER EMAR. PT LATER C/O NAUSEA; MEDICATED THRU OUT THE DAY PER PT REQUEST. PT UP TO SHOWER A COUPLE OF TIMES, REPORTING HOT SHOWERS HELP WITH NAUSEA. HEATING PAD ON ALL DAY, REFILLED WITH WATER. MEDICATED FOR C/O BACK PAIN THRU OUT THE DAY PER EMAR. DR VILLATORO HERE A COUPLE OF TIMES TO CHECK ON PT. MEDICATIONS ADJUSTED. CBG'S MOSTLY STABLE; SEE CHART. PT DRINKING WELL; IVF'S D/C'D. PT STILL UNSURE IF HE WANTS DIET ADVANCED OF YET. UP TO BTHRM INDEPENDENTLY. PT REPORTED 2 BM'S THIS SHIFT. PT PRESENTLY RESTING QUIETLY WITH TV ON. CALL LT IN REACH.
--- NOTE | 2021-04-12 22:22 | NUR ---
DIET ADVANCED PT EXPRESSED TO RN HE IS READY TO ADVANCE HIS DIET "TIRED OF DRINKING FLUIDS ALL THE TIME". PT'S NAUSEA IS TOLERABLE BUT IS NOT EXACERBATED BY FLUIDS. HOSPITALIST TIA NOTIFIED. DIET HAS BEEN ADVANCED TO ADA DIET. BLOOD SUGARS CHANGED TO AC. PT HAD AN HALF A SANDWICH AND TOLERATED WELL. WILL CONTINUE TO MONITOR.
--- NOTE | 2021-04-13 06:23 | NUR ---
IT SERVICE TECHNICIAN SUMMARY PT A/O X4. INDEPENDENT IN ROOM. PT ATE A SANDWICH TONIGHT AND TOLERATED IT WELL. NAUSEA WAS TOLERABLE. PT CONTINUES TO HAVE ABD PAIN. MEDICATED ONCE WITH ORAL PAIN MED AND ONCE WITH IV PAIN MED. PT AT FIRST ASKED TO HAVE IV DILAUDID BEFORE ORAL PAIN MED WAS GIVEN HE SAID THE ORAL ONE WOULDN'T WORK FAST ENOUGH. THIS RN EDUCATED PT TO TRY ORAL ONE FIRST BECAUSE HE WON'T HAVE AN IV WHEN HE GOES HOME. PT AGREED TO HAVE ORAL DIALUDID FIRST WHICH HELPED WITH PAIN FOR A LITTLE AWHILE. PT EXPRESSED TO NURSE THAT HE IS READY TO GO HOME TODAY. SLEPT WELL, CALL LIGHT WITHIN REACH, WILL GIVE REPORT TO ONCOMING NURSE.
[2021-04-13] MEDS ORDERED: HYDMOR2 PO (10:59)
[2021-04-13] MEDS ORDERED: ONDA4ODT MM (11:00)
--- NOTE | 2021-04-13 12:09 | NUR ---
PT IS A&O, SITTING UP IN BED THIS AM. PT FEELING MUCH BETTER AND WANTING FOOD. PT TOLERATED REG ADA DIET DURING THE NIGHT AND REQUESTED REG ADA DIET THIS AM WELL. PT WANTING TO GO HOME TODAY. DR VILLATORO HERE TO SEE PT AND DISCUSS PLAN OF CARE. INSULIN AND MONITORING CBG'S DISCUSSED; PT VERBALIZED UNDERSTANDING. D/C ORDERS PLACED. [facility]. HARD SCRIPT ALSO PROVIDED FOR DILAUDID; COPY OF SCRIPT PLACED ON FRONT OF CHART. D/C INSTRUCTIONS DISCUSSED WITH PT AND GIVEN. PT CALLED HIS DAD FOR RIDE HOME.
== END 2021-04-13 11:10 | disposition home or self-care (01) | DRG 74 ==
LOC: ER 07:37 → PCU 10:36 → MEDS 10:36 → PCU 12:36 → MEDS 04-11 12:36
PROVIDERS: Emergency Medicine; Nurse Practitioner Acute Care; ADMIT Internal Medicine
DX: E11.43 Type 2 diabetes mellitus with diabetic autonomic (poly)neuropathy (principal); N17.9 Acute kidney failure, unspecified; E87.2 Acidosis; R65.10 Systemic inflammatory response syndrome (SIRS) of non-infectious origin without acute organ dysfunction; E87.1 Hypo-osmolality and hyponatremia; E87.5 Hyperkalemia; E86.0 Dehydration; F17.210 Nicotine dependence, cigarettes, uncomplicated; E83.39 Other disorders of phosphorus metabolism; K31.84 Gastroparesis; E11.65 Type 2 diabetes mellitus with hyperglycemia; M19.90 Unspecified osteoarthritis, unspecified site; Z86.14 Personal history of Methicillin resistant Staphylococcus aureus infection; Z90.49 Acquired absence of other specified parts of digestive tract; Z79.4 Long term (current) use of insulin; Z79.899 Other long term (current) drug therapy; Z22.322 Carrier or suspected carrier of Methicillin resistant Staphylococcus aureus
CPT/HCPCS: 36415; 71045; 74177; 80048; 80053; 81001; 82150; 82550; 82570; 82947; 83036; 83605; 83690; 83735; 84100; 84300; 84550; 85025; 87040; 87077; 87086; 87186; 93005; 93010; 94760; 96361; 96365; 96365-59; 96375; 99284-25; 99285-25; A9270; J0295; J0610; J0690; J1170; J1644; J1815; J2405; J2550; J2765; J3010; J7030; Q9967

== ENCOUNTER 2021-05-08 09:32 | Inpatient (IN) | payer OTHER ==
[~2021-05-08] VITALS: Ht 185.4 cm; Wt 81.9 kg
[~2021-05-08 09:32] MED LIST changes: +BASAGLAR K100 UNIT/1 SC; +HYDMOR2 PO
[2021-05-08 09:55] LABS: Calcium, Ionized (POC) 1.04 mmol/L (1.10-1.46); Chloride (POC) 87 mmol/L (98-108); Creatinine (POC) 4.4 mg/dL (0.8-1.3); Glucose (ISTAT POC) 625 mg/dL (70-99); Hemoglobin (POC) 20.1 g/dL (13.5-17.5); Potassium (POC) 6.3 mmol/L (3.5-5.5); Sodium (POC) 124 mmol/L (135-148); Total CO2 (POC) 25 mmol/L (21-32)
[2021-05-08 09:58] LABS: BASOPHILS ABSOLUTE AUTO 0.05 K/mm3 (0.00-0.23); BASOPHILS PERCENT AUTO 0 % (0-2); EOSINOPHILS PERCENT AUTO 0 % (0-6); Hematocrit 53.4 % (37.0-53.0); IMMATURE GRAN ABSOLUTE AUTO 0.12 K/mm3 (0.00-0.10); IMMATURE GRAN PERCENT AUTO 1 % (0-1); LYMPHOCYTES ABSOLUTE AUTO 1.55 K/mm3 (0.84-5.20); LYMPHOCYTES PERCENT AUTO 9 % (21-46); MONOCYTES ABSOLUTE AUTO 1.22 K/mm3 (0.16-1.47); MONOCYTES PERCENT AUTO 7 % (4-13); Mean Corpuscular HGB 30.5 pg (26.0-34.0); Mean Corpuscular HGB Conc 35.6 g/dL (31.5-36.5); Mean Corpuscular Volume 86 fL (80-100); Mean Platelet Volume 11.6 fL (9.1-12.4); NEUTROPHILS ABSOLUTE AUTO 15.38 K/mm3 (1.96-9.15); NEUTROPHILS PERCENT AUTO 84 % (41-73); Platelet Count 193 K/mm3 (150-400); RDW Coefficient Variation 13.3 % (11.7-14.2); RDW Standard Deviation 40.4 fL (35.1-46.3); Red Blood Cell Count 6.23 M/mm3 (4.30-5.90); White Blood Cell Count 18.32 K/mm3 (4.00-11.30)
[2021-05-08 10:21] LABS: Beta-hydroxybutyrate 6.4 mg/dL (0.2-2.8)
[2021-05-08 10:24] LABS: Albumin, Blood 5.2 g/dL (3.4-5.0); Albumin/Globulin Ratio 1.1 (0.8-1.8); Bilirubin, Total 1.5 mg/dL (0.1-1.0); Bun/Creatinine Ratio 8.2 (12.0-20.0); Calcium, Blood 11.4 mg/dL (8.5-10.1); Creatinine, Blood 4.02 mg/dL (0.60-1.20); Globulin, Blood 4.8 g/dL (2.2-4.0); Potassium, Blood 6.1 mmol/L (3.5-5.5)
[2021-05-08 10:51] LABS: CPK Creatine Kinase 67 U/L (39-308)
[2021-05-08 12:07] LABS: Source, Urine Clean Catch
[2021-05-08 12:39] LABS: Appearance, Urine Clear (Clear); Bilirubin, Urine Neg (Neg); Blood, Urine 2+ (Neg); Color, Urine Yellow (P-Yellow); Glucose Qualitative, Urine 4+ (Neg); Ketones, Urine Neg (Neg); Leukocyte Esterase, Urine Neg (Neg); Nitrite, Urine Neg (Neg); Protein, Urine 3+ (Neg); Urobilinogen, Urine NORM (Normal)
[2021-05-08 12:54] LABS: Adenovirus Not Detected (NOT DETECT); Bordetella pertussis Not Detected (NOT DETECT); Chlamydophila pneumoniae Not Detected (NOT DETECT); Coronavirus 229E Not Detected (NOT DETECT); Coronavirus HKU1 Not Detected (NOT DETECT); Coronavirus NL63 Not Detected (NOT DETECT); Coronavirus OC43 Not Detected (NOT DETECT); Human Metapneumovirus Not Detected (NOT DETECT); Human Rhinovirus/Enterovirus Not Detected (NOT DETECT); Influenza A/2009-H1 Not Detected (NOT DETECT); Influenza A/H1 Not Detected (NOT DETECT); Influenza A/H3 Not Detected (NOT DETECT); Influenza B Not Detected (NOT DETECT); Mycoplasma pneumoniae Not Detected (NOT DETECT); Parainfluenza Virus 1 Not Detected (NOT DETECT); Parainfluenza Virus 2 Not Detected (NOT DETECT); Parainfluenza Virus 3 Not Detected (NOT DETECT); Parainfluenza Virus 4 Not Detected (NOT DETECT); Respiratory Syncytial Virus Not Detected (NOT DETECT); SARS-Cov-2 (COVID-19), BioFire Not Detected (NOT DETECT)
[2021-05-08 13:04] LABS: Bacteria Few /hpf; Mucus Light (0-Heavy); Squamous Epithelial Cells Few /hpf (Few)
[2021-05-08 14:54] LABS: Bun/Creatinine Ratio 12.1 (12.0-20.0); Calcium, Blood 9.6 mg/dL (8.5-10.1); Creatinine, Blood 3.14 mg/dL (0.60-1.20); Potassium, Blood 4.3 mmol/L (3.5-5.5)
[2021-05-08 17:24] LABS: U Amphetamine Screen Not Detected; U Barbituate Screen Not Detected; U Benzodiazapine Screen Not Detected; U Buprenorphine Screen Not Detected; U Cannabinoids Screen DETECTED; U Cocaine Screen Not Detected; U Methadone Screen Not Detected; U Methamphetamine Screen Not Detected; U Opiates Screen Not Detected; U Oxycodone Screen Not Detected; U Phencyclidine Screen Not Detected; U Propoxyphene Screen Not Detected
--- NOTE | 2021-05-08 18:24 | NUR ---
SHIFT SUMMARY; ER ADMIT DURING SHIFT. A/A/OX4, MOVES FROM ER GURNEY TO BED WITHOUT DIFFICULTY. NS INFUSING AT 150ML/HR. INSULIN PER EMAR. NO EMESIS DURING SHIFT. FALLS ASLEEP SHORTLY AFTER ARRIVAL AND SLEEPS THROUGHOUT AFTERNOON. TELEPHONE CALL TO DR. SOLO IN EVENING REGARDING ABD PAIN AND LEG CRAMPS. VERBAL ORDER GIVEN FOR ONE TIME GI COCKTAIL AND 1MG ATIVAN IV. VSS, WILL CONTINUE TO MONITOR AND TREAT UNTIL CHANGE OF SHIFT.
[2021-05-09 04:38] LABS: BASOPHILS ABSOLUTE AUTO 0.04 K/mm3 (0.00-0.23); BASOPHILS PERCENT AUTO 0 % (0-2); EOSINOPHILS ABSOLUTE AUTO 0.06 K/mm3 (0.00-0.68); EOSINOPHILS PERCENT AUTO 1 % (0-6); Hematocrit 43.6 % (37.0-53.0); Hemoglobin 15.4 g/dL (13.5-17.5); IMMATURE GRAN ABSOLUTE AUTO 0.04 K/mm3 (0.00-0.10); IMMATURE GRAN PERCENT AUTO 0 % (0-1); LYMPHOCYTES ABSOLUTE AUTO 3.18 K/mm3 (0.84-5.20); LYMPHOCYTES PERCENT AUTO 27 % (21-46); MONOCYTES ABSOLUTE AUTO 1.19 K/mm3 (0.16-1.47); MONOCYTES PERCENT AUTO 10 % (4-13); Mean Corpuscular HGB Conc 35.3 g/dL (31.5-36.5); Mean Corpuscular Volume 88 fL (80-100); Mean Platelet Volume 10.8 fL (9.1-12.4); NEUTROPHILS ABSOLUTE AUTO 7.41 K/mm3 (1.96-9.15); NEUTROPHILS PERCENT AUTO 62 % (41-73); Platelet Count 148 K/mm3 (150-400); RDW Coefficient Variation 13.4 % (11.7-14.2); RDW Standard Deviation 42.7 fL (35.1-46.3); Red Blood Cell Count 4.97 M/mm3 (4.30-5.90); White Blood Cell Count 11.92 K/mm3 (4.00-11.30)
--- NOTE | 2021-05-09 04:49 | NUR ---
PATIENT IS ALERT AND ORIENTATED X 4, ABLE TO MAKE NEEDS KNOWN, CALLS APPROPRIATELY, PATIENT NEEDS REMINDING TO URINATE, WITH QUEING PATIENT IS ABLE TO GENERATE STREAM, PATIENT GAIT IS UNSTEADY AND SHUFFLE IN PRESENTATION, FWW WAS USED TO KEEP PATIENT MORE STEADY. PATIENT C/O OF LEFT LOWER LEG PAIN GIVEN TYLENOL PRN, C/O OF NAUSEA X 1 WITH NO EMESIS GIVEN REGLAN PRN WITH GOOD RESULT, PATIENT SLEPT THROUGHOUT MOST THE NIGHT.
[2021-05-09 04:55] LABS: Magnesium, Blood 2.5 mg/dL (1.6-2.4)
[2021-05-09 05:10] LABS: Albumin, Blood 3.7 g/dL (3.4-5.0); Albumin/Globulin Ratio 1.2 (0.8-1.8); Bun/Creatinine Ratio 25.7 (12.0-20.0); Calcium, Blood 8.9 mg/dL (8.5-10.1); Creatinine, Blood 1.52 mg/dL (0.60-1.20); Globulin, Blood 3.1 g/dL (2.2-4.0); Total Protein, Blood 6.8 g/dL (6.4-8.2)
--- NOTE | 2021-05-09 06:12 | NUR ---
CALLED MD X 2 WAITING FOR RESPONSE PATIENT MAGNESIUM 2.5 THIS AM.
--- NOTE | 2021-05-09 08:10 | NUR ---
0710: RECVD REPORT FROM PREVIOUS SHIFT YUMI SMITH; PT SLEEPING IN BED, BED RAILS UP X 2, CALL LIGHT WITHIN REACH, BED IN LOWEST POSITION DR GAYE WINKLER ON PT
--- NOTE | 2021-05-09 10:30 | NUR ---
[facility] represenative consulting with pt.
--- NOTE | 2021-05-09 12:41 | NUR ---
pt lying in bed, awake, states muscle cramps in legs are "better"
--- NOTE | 2021-05-09 14:00 | NUR ---
pt advocate in room with pt
--- NOTE | 2021-05-09 16:00 | NUR ---
dr carcamo rounding on pt
--- NOTE | 2021-05-09 18:25 | NUR ---
following dinner, pt provided with discharge instructions and printed materials. pt states understanding of instructions, will call primary care provider for follow/up appointment, will check his CBGs at home. peripheral IV removed WNL. pt refuses offer of wheelchair escort to await transport home. pt ambulated himself to meet ride outside pt entrance, carried his own belongings
== END 2021-05-09 18:25 | disposition home or self-care (01) | DRG 682 ==
LOC: ER 09:32 → ERHOLD 12:45 → PCU 14:35
PROVIDERS: Nurse Practitioner Acute Care; Physician Assistant; ADMIT Internal Medicine
DX: N17.9 Acute kidney failure, unspecified (principal); R65.11 Systemic inflammatory response syndrome (SIRS) of non-infectious origin with acute organ dysfunction; E87.5 Hyperkalemia; Z20.822 Contact with and (suspected) exposure to COVID-19; E11.65 Type 2 diabetes mellitus with hyperglycemia; E86.0 Dehydration; Z90.49 Acquired absence of other specified parts of digestive tract; F17.210 Nicotine dependence, cigarettes, uncomplicated
CPT/HCPCS: 0202U; 36415; 71046; 74176; 80047; 80048; 80053; 81001; 82010; 82550; 82947; 83605; 83690; 83735; 85014; 85025; 93005; 93010; 96365; 96375; 99285-25; A9270; J1815; J2060; J2405; J2765; J3010; J3475; J7030

== ENCOUNTER 2021-05-11 08:20 | Emergency (ER) | payer OTHER ==
[~2021-05-11] VITALS: Ht 185.4 cm; Wt 81.7 kg
[2021-05-11] MEDS ORDERED: NAPR500 PO (09:19)
[2021-05-11] MEDS ORDERED: SULTRIDS PO (09:19)
== END 2021-05-11 10:01 | disposition home or self-care (01) ==
LOC: ER 08:20
DX: L02.413 Cutaneous abscess of right upper limb (principal)
CPT/HCPCS: 10061; 99283-25; A9270

== ENCOUNTER 2024-07-29 18:22 | Inpatient (IN) | payer OTHER ==
[~2024-07-29] VITALS: Ht 182.9 cm; Wt 78.2 kg
[~2024-07-29 18:22] MED LIST changes: +Lactated Ringer's 1,000 ML IV SCH; +NAPR500 PO; +SULTRIDS PO
[2024-07-29 23:37] VITALS: BP 148/80
[2024-07-29] MEDS ORDERED: Metoclopramide HCl 5MG / ML 2ML Vial IV PRN (23:50)
[2024-07-29] MEDS ORDERED: Ondansetron HCl 2 MG / ML 2ML Vial IV PRN (23:50)
[2024-07-29] MEDS ORDERED: Acetaminophen 650 MG Supp PR PRN (23:50)
[2024-07-29] MEDS ORDERED: Acetaminophen 325 MG TABLET PO PRN (23:50)
[2024-07-29] MEDS ORDERED: FentaNYL Citrate 50 MCG/ML 2 ML Injection IV PRN (23:55)
[2024-07-29] MEDS ORDERED: FLU VACC TS2024-25(6MOS UP)/PF 45 MCG/0.5 ML SYRINGE IM ONE (23:55)
[2024-07-29] MEDS ORDERED: OxyCODONE HCL 5 MG TAB PO PRN (23:55)
[2024-07-30] MEDS ORDERED: Insulin Regular 100 UNIT/ML 10ML Vial SC SCH
[2024-07-30] MEDS ORDERED: Piperacillin/Tazobactam Sod 4.5 GM in NS 100 ML IV SCH (00:03)
[2024-07-30] MEDS ORDERED: Vancomycin HCL 2,000 MG in NS 500 ML IV ONE (00:10)
[2024-07-30] MEDS ORDERED: NS 250 ML IV PRN (00:15)
[2024-07-30 00:24] LABS: BASOPHILS ABSOLUTE AUTO 0.04 K/mm3 (0.00-0.23); BASOPHILS PERCENT AUTO 0 % (0-2); EOSINOPHILS ABSOLUTE AUTO 0.17 K/mm3 (0.00-0.68); EOSINOPHILS PERCENT AUTO 2 % (0-6); Hematocrit 40.4 % (37.0-53.0); Hemoglobin 13.8 g/dL (13.5-17.5); IMMATURE GRAN ABSOLUTE AUTO 0.05 K/mm3 (0.00-0.10); IMMATURE GRAN PERCENT AUTO 1 % (0-1); LYMPHOCYTES ABSOLUTE AUTO 1.09 K/mm3 (0.84-5.20); LYMPHOCYTES PERCENT AUTO 10 % (21-46); MONOCYTES ABSOLUTE AUTO 1.03 K/mm3 (0.16-1.47); MONOCYTES PERCENT AUTO 9 % (4-13); Mean Corpuscular HGB 29.9 pg (26.0-34.0); Mean Corpuscular HGB Conc 34.2 g/dL (31.5-36.5); Mean Corpuscular Volume 88 fL (80-100); Mean Platelet Volume 9.7 fL (9.1-12.4); NEUTROPHILS ABSOLUTE AUTO 8.58 K/mm3 (1.96-9.15); NEUTROPHILS PERCENT AUTO 78 % (41-73); Platelet Count 189 K/mm3 (150-400); RDW Coefficient Variation 12.9 % (11.7-14.2); RDW Standard Deviation 40.9 fL (35.1-46.3); Red Blood Cell Count 4.61 M/mm3 (4.30-5.90); White Blood Cell Count 10.96 K/mm3 (4.00-11.30)
[2024-07-30 00:26] LABS: Base Excess Venous -2.4 mmol/L; Bicarbonate Venous 22.4 mmol/L (24.0-30.0); PCO2 Venous 40.2 mmHg (38-42); pH Blood Venous 7.37 (7.34-7.37)
[2024-07-30 00:46] LABS: Albumin, Blood 2.8 g/dL (3.4-5.0); Albumin/Globulin Ratio 0.8 (0.8-1.8); Beta-hydroxybutyrate 8.8 mg/dL (0.2-2.8); Bilirubin, Total 0.6 mg/dL (0.1-1.0); Bun/Creatinine Ratio 34.1 (12.0-20.0); C-Reactive Protein, High Sens. 4.79 mg/dL (0.000-3.000); Creatinine, Blood 0.94 mg/dL (0.60-1.20); Globulin, Blood 3.3 g/dL (2.2-4.0); Potassium, Blood 4.3 mmol/L (3.5-5.5); Total Protein, Blood 6.1 g/dL (6.4-8.2)
--- NOTE | 2024-07-30 01:29 | NUR ---
PATIENT IS A DIRECT ADMIT FROM [facility]. DX OSTEOMYELITIS RIGHT FOOT. ALERT AND ORIENTED. ONE ASSIST TRANSFER FROM [facility] TO BED. DENIES CHEST PAIN AND SOB. NAUSEOUS ON ADMIT. DR TURNER IN TO SEE PATIENT AND PLACED ORDERS. JUSTIN IN PLACE ON ARRIVAL FOR RETENTION PER PATIENT. Q6 CBG CHECKS. CBG 303 AND HUMILIN R GIVEN PER SLIDING SCALE. NPO. IV ABXS STARTED. REPORTS USES CANNBIS AT TIMES BUT NOT RECENTLY. OPEN WOUND TO RIGHT FOOT PHOTOGRAPHED AND IN CHART. DRESSING CHANGED. REPORTED RIGHT FOOT PAIN AND IV FENTANYL 50 MCG GIVEN IV ZOFRAN GIVEN FOR NAUSEA WITH GOOD EFFECT. ORIENTED TO ROOM AND CALL LIGHT SYSTEM. SLEPT AFTER ASSESSMENT. WCTM.
[2024-07-30 04:50] VITALS: BP 147/90
--- NOTE | 2024-07-30 05:13 | NUR ---
MRI FORM FILLED OUT AND FAXED. CONSENT TO PHOTOGRAPH SIGNED AND IN CHART. PATIENT REPORTS HE HAD MRI AT [facility]. LR INFUSING @ 125mL/HR. PATIENT REPORTS HE WANTS A SHOWER OVER IV ABX AND PAIN MEDS. IV FENTANYL 50 MCG GIVEN PER EMAR FOR RIGHT FOOT PAIN. WCTM.
[2024-07-30 07:35] VITALS: BP 139/81
--- NOTE | 2024-07-30 08:00 | NUR ---
PT A/O X3, STATES PAIN IN LEFT CHEST WALL. STATES SHOWER RELEIVES, DISCUSSED WITH DR PINO. ZAK USE KPAD. NO NEW ORDERS. PT STATES DOES HELP SOME. H/R REG, NO MURMUR NOTED. NO TELE. LUNGS CLEAR, RESP EASY UNLABORED. ON R.A. BT X4 LAST BM NOT KNOWN BY PT. VOIDS ANDERSON FROM TRANSFER HOSP. DESIRES REMOVED. SPOKE TO DR. CRESPO REMOVE. INDEPENDANT IN ROOM. PENDING SURG CONSULT FROM FOOT DR. [place]O UNTIL SEEN. BED IN LOW POSITION, CALL LITE IN REACH, CALLS APROP
[2024-07-30 08:41] LABS: BASOPHILS ABSOLUTE AUTO 0.03 K/mm3 (0.00-0.23); BASOPHILS PERCENT AUTO 0 % (0-2); EOSINOPHILS ABSOLUTE AUTO 0.18 K/mm3 (0.00-0.68); EOSINOPHILS PERCENT AUTO 2 % (0-6); Hematocrit 40.2 % (37.0-53.0); IMMATURE GRAN ABSOLUTE AUTO 0.02 K/mm3 (0.00-0.10); IMMATURE GRAN PERCENT AUTO 0 % (0-1); LYMPHOCYTES ABSOLUTE AUTO 1.52 K/mm3 (0.84-5.20); LYMPHOCYTES PERCENT AUTO 16 % (21-46); MONOCYTES ABSOLUTE AUTO 1.26 K/mm3 (0.16-1.47); MONOCYTES PERCENT AUTO 13 % (4-13); Mean Corpuscular HGB 29.9 pg (26.0-34.0); Mean Corpuscular HGB Conc 34.8 g/dL (31.5-36.5); Mean Corpuscular Volume 86 fL (80-100); Mean Platelet Volume 9.9 fL (9.1-12.4); NEUTROPHILS ABSOLUTE AUTO 6.51 K/mm3 (1.96-9.15); NEUTROPHILS PERCENT AUTO 68 % (41-73); Platelet Count 199 K/mm3 (150-400); RDW Coefficient Variation 12.8 % (11.7-14.2); RDW Standard Deviation 39.9 fL (35.1-46.3); Red Blood Cell Count 4.68 M/mm3 (4.30-5.90); White Blood Cell Count 9.52 K/mm3 (4.00-11.30)
--- NOTE | 2024-07-30 08:58 | NUR ---
PT C/O CHEST PAIN. REPRODUCABLE WITH LIGHT TOUCH OR PRESSURE TO INTERCOSTAL AND CHEST MUSCLES. PT STATES A HOT SHOWER WILL AND DID RELIEVE PAIN YESTERDAY. PLACED HEAT PAD. CALLED DR PINO TO CONFIRM. NO NEW ORDERS.
[2024-07-30 09:00] LABS: Albumin, Blood 2.9 g/dL (3.4-5.0); Albumin/Globulin Ratio 0.9 (0.8-1.8); Bilirubin, Total 0.7 mg/dL (0.1-1.0); Bun/Creatinine Ratio 29.9 (12.0-20.0); Calcium, Blood 8.3 mg/dL (8.5-10.1); Creatinine, Blood 0.84 mg/dL (0.60-1.20); Globulin, Blood 3.2 g/dL (2.2-4.0); Magnesium, Blood 1.9 mg/dL (1.6-2.4); Total Protein, Blood 6.1 g/dL (6.4-8.2)
[2024-07-30] MEDS ORDERED: Enoxaparin 40 MG/0.4 ML SYR SC SCH (09:00)
[2024-07-30] MEDS ORDERED: Lactobacil 2-S.Thermo-Bifido 1 1 Cap PO SCH (09:00)
[2024-07-30] MEDS ORDERED: Vancomycin HCL 1,000 MG in NS 250 ML IV SCH (10:00)
--- NOTE | 2024-07-30 10:42 | NUR ---
DR PINO IN ROOM. HAS CONCERNS FOR RETURN TO [facility]. WILL ORDER NEW LABS. REQUEST CALL FOOT DR AGAIN. CALLED DR GOMEZ, GAVE MRI INFO TO . DR STATES OKAY TO EAT NOW. MAKE NPO MIDNITE, SURGERY PROB NONDAY. CALLED DR PINO. TC
[2024-07-30 12:15] LABS: Creatinine, Blood 0.76 mg/dL (0.60-1.20); Potassium, Blood 3.9 mmol/L (3.5-5.5)
[2024-07-30 15:44] VITALS: BP 143/86
--- NOTE | 2024-07-30 18:35 | NUR ---
PT RESTING OFF AND ON THROUGHOUT DAY. MEDICATED FOR PAIN PER EMAR. I JUST WENT TO ROOM TO SEE IF NEXT PAIN MED NEEDED. PT EYES CLOSED, RESP EASY, UNLABORED. I QUIETLY LEFT ROOM. PLANNING SURGERY ON FOOT TOMORROW. NPO MIDNITE. PT REQUESTS ANOTHER SHOWER WHEN ABX DONE RUNNING. PT DID GET UP AND WALKED ABOUT HALLWAY THIS DAY. STATES DID NOT INCREASE PAIN MUCH. NO OTHER NEW CONCERNS NOTED. BED INLOW POSITION, CALL LITE IN REACH, CALLS APPROP
[2024-07-30 19:21] VITALS: BP 134/84
[2024-07-30] MEDS ORDERED: Insulin Glargine-Yfgn 100 Unit/mL 3 ML SYR SC SCH (21:00)
[2024-07-31] VITALS (13 sets, daily range): BP systolic 113–149; BP diastolic 71–91
[2024-07-31 01:18] LABS: Vancomycin, Trough 16.5 ug/mL (5.0-10.0)
--- NOTE | 2024-07-31 06:07 | NUR ---
SHOW CARD LETTERER PATIENT IS A&OX4, VITALS ARE STABLE, ON ROOM AIR, NOT ON TELE. PATIENT COMPLAINED OF NAUSEA AND PAIN THROUGHOUT SHIFT, PRN NAUSEA MEDS AND PAIN MEDS WERE GIVEN PLAN IS TO DO A SURGICAL PROCEDURE TODAY ON PATIENT FOOT. PATIENT HAS BEEN NPO SINCE MIDNIGHT.
[2024-07-31 08:15] LABS: BASOPHILS ABSOLUTE AUTO 0.05 K/mm3 (0.00-0.23); BASOPHILS PERCENT AUTO 1 % (0-2); EOSINOPHILS ABSOLUTE AUTO 0.16 K/mm3 (0.00-0.68); EOSINOPHILS PERCENT AUTO 2 % (0-6); Hematocrit 38.8 % (37.0-53.0); Hemoglobin 13.6 g/dL (13.5-17.5); IMMATURE GRAN ABSOLUTE AUTO 0.03 K/mm3 (0.00-0.10); IMMATURE GRAN PERCENT AUTO 0 % (0-1); LYMPHOCYTES PERCENT AUTO 15 % (21-46); MONOCYTES ABSOLUTE AUTO 1.37 K/mm3 (0.16-1.47); MONOCYTES PERCENT AUTO 15 % (4-13); Mean Corpuscular HGB 30.4 pg (26.0-34.0); Mean Corpuscular HGB Conc 35.1 g/dL (31.5-36.5); Mean Corpuscular Volume 87 fL (80-100); Mean Platelet Volume 9.5 fL (9.1-12.4); NEUTROPHILS PERCENT AUTO 67 % (41-73); Platelet Count 185 K/mm3 (150-400); RDW Coefficient Variation 12.7 % (11.7-14.2); RDW Standard Deviation 39.9 fL (35.1-46.3); Red Blood Cell Count 4.47 M/mm3 (4.30-5.90); White Blood Cell Count 9.21 K/mm3 (4.00-11.30)
[2024-07-31 08:37] LABS: Bun/Creatinine Ratio 24.3 (12.0-20.0); Calcium, Blood 8.4 mg/dL (8.5-10.1); Creatinine, Blood 0.7 mg/dL (0.60-1.20); Potassium, Blood 3.6 mmol/L (3.5-5.5)
[2024-07-31] MEDS ORDERED: Nicotine 14 MG PATCH TOP SCH (09:00)
[2024-07-31] MEDS ORDERED: Mag Hydrox/AL Hydrox/Simeth 30 ML UDC PO PRN (10:35)
[2024-07-31] MEDS ORDERED: Lactated Ringer's 1,000 ML IV SCH (10:45)
[2024-07-31] MEDS ORDERED: Pantoprazole Sodium 40 MG Injection IV SCH (11:00)
[2024-07-31] MEDS ORDERED: Bupivacaine 0.5% HCl 5 MG/ML 30MLVIAL ONE (11:34)
[2024-07-31] MEDS ORDERED: Lidocaine HCl 2% 10 ML SDA ONE (11:34)
--- NOTE | 2024-07-31 11:36 | NUR ---
PATIENT OFF FLOOR TO SURGERY FOR RIGHT LITTLE TOE AMPUTATION.
[2024-07-31] MEDS ORDERED: propofoL 40 ML IV ONE (11:53)
--- NOTE | 2024-07-31 12:05 | NUR ---
PRE SURGERY NOTE PT A&OX4, BREATHING RA, CALM, FLAT AFFECT, NO COMPLAINTS. PT UNDRESSED AND BELONGINGS STOWED IN PBB BELOW STRETCHER, PARTIAL DENTURE IN DENTURE CUP TO PACU. REMOVED L IV 2/2 INFILTRATION, PAINFUL FOR PT, SKIN BECAME HARD SURROUNDING IV WHEN FLUSHED WITH NS BUT QUICKLY WENT AWAY. Ambulatory in Day Surgery Patient confirms NPO status and agrees with scheduled surgery. Pre-Op teaching done. Pt verbalizes understanding.
[2024-07-31] MEDS ORDERED: FentaNYL Citrate 50 MCG/ML 2 ML Injection ONE (12:19)
[2024-07-31] MEDS ORDERED: Ondansetron HCl 2 MG / ML 2ML Vial ONE (12:31)
--- NOTE | 2024-07-31 18:13 | NUR ---
SHIFT SUMMARY; PATIENT HAD RIGHT FOOT LITTLE TOE AMPUTATION TODAY. RETURNED TO ROOM AT 1400. PATIENT COMPLAINS OF PAIN IN STOMACH BUT NOT IN FOOT. HE IS MEDICATED WITH 50MCG FENTANYL WITH GOOD RESULTS. ALSO MAALOX PO. VITAL SIGNS AREMAIN STABLE AND WNL. HE IS NOT FEBRILE. HE IS NOW AC AND HS BLOOD SUGARS. PER MD PATIENT SHOULD NOT TAKE SHOWER TODAY. PT ORDER RECEIVED AND THEY WILL COME SEE HIM. PATIENT REMAINS AO X 4. USES CALL LIGHT APPROPRIATELY. NO BLEEDING IS NOTED TO RIGHT FOOT. WILL REMAIN AVAILABLE FOR THIS PATIENT AND REINFORCE BANDAGE IF BLEEDING NOTED.
[2024-07-31] MEDS ORDERED: Insulin Regular 100 UNIT/ML 10ML Vial SC SCH (21:00)
[2024-07-31] MEDS ORDERED: Famotidine 20 MG Tab PO SCH (21:00)
--- NOTE | 2024-07-31 23:52 | NUR ---
PT STATUS PATIENT IS INSISTING ON FREQUENT SHOWERS. HE STATES THE PAIN AND NAUSEA MEDS DO HELP, BUT HE SAYS HE ALSO NEEDS FREQUENT SHOWERS TO FEEL BETTER. THIS ALSO OCCURED ON THE PREVIOUS SHIFT PER REPORT FROM DAY SHIFT. WE HAVE WRAPPED AND TAPED HIS INJURED LEG AND HIS IV TO OUR BEST ABILITY TWICE SO FAR THIS SHIFT. WE INFORMED HIM THAT IT IS PREFERED THAT HE NOT SHOWER THIS SOON AFTER SURGERY. WE DID INFORM HIM THAT IT IS IMPORTANT FOR HIM TO RECEIVE ALL OF HIS IV MEDICATION IN A TIMELY FASHION. BUT HE INSISTS ON PROCEEDING WITH FREQUENT SHOWERS. CHARGE INFORMED.
[2024-08-01 01:51] LABS: BASOPHILS ABSOLUTE AUTO 0.05 K/mm3 (0.00-0.23); BASOPHILS PERCENT AUTO 1 % (0-2); EOSINOPHILS ABSOLUTE AUTO 0.12 K/mm3 (0.00-0.68); EOSINOPHILS PERCENT AUTO 1 % (0-6); Hematocrit 37.3 % (37.0-53.0); Hemoglobin 13.2 g/dL (13.5-17.5); IMMATURE GRAN ABSOLUTE AUTO 0.11 K/mm3 (0.00-0.10); IMMATURE GRAN PERCENT AUTO 1 % (0-1); LYMPHOCYTES PERCENT AUTO 16 % (21-46); MONOCYTES ABSOLUTE AUTO 1.48 K/mm3 (0.16-1.47); MONOCYTES PERCENT AUTO 14 % (4-13); Mean Corpuscular HGB 30.3 pg (26.0-34.0); Mean Corpuscular HGB Conc 35.4 g/dL (31.5-36.5); Mean Corpuscular Volume 86 fL (80-100); NEUTROPHILS ABSOLUTE AUTO 7.08 K/mm3 (1.96-9.15); NEUTROPHILS PERCENT AUTO 67 % (41-73); Platelet Count 185 K/mm3 (150-400); RDW Coefficient Variation 12.5 % (11.7-14.2); RDW Standard Deviation 38.9 fL (35.1-46.3); Red Blood Cell Count 4.36 M/mm3 (4.30-5.90); Vancomycin, Trough 12.3 ug/mL (5.0-10.0); White Blood Cell Count 10.54 K/mm3 (4.00-11.30)
[2024-08-01 02:00] LABS: Bun/Creatinine Ratio 14.6 (12.0-20.0); Calcium, Blood 8.3 mg/dL (8.5-10.1); Creatinine, Blood 0.75 mg/dL (0.60-1.20); Potassium, Blood 3.6 mmol/L (3.5-5.5)
[2024-08-01] MEDS ORDERED: Vancomycin HCL 1,250 MG in NS 250 ML IV SCH (02:09)
[2024-08-01] MEDS ORDERED: Piperacillin/Tazobactam Sod 4.5 GM in NS 100 ML IV SCH (03:00)
[2024-08-01 03:24] VITALS: BP 148/81
--- NOTE | 2024-08-01 03:42 | NUR ---
SHIFT SUMMARY ADMITTED FOR RT FOOT OSTEOMYELITIS. FULL CODE. IV ANTIB RX ARE SCHEDULED. HE IS A&O X4. INDEPENDENT. ON RA. PAIN AND NAUSEA MEDICATIONS GIVEN FREQUENTLY THIS SHIFT. ADA DIET. ACHS CBG'S, LOW SS. DR. GOMEZ IS PODIATRY CONSULT. RIGHT FIFTH TOE AMPUTATION PERFORMED ON PREVIOUS SHIFT.
[2024-08-01 07:44] VITALS: BP 145/84
[2024-08-01] MEDS ORDERED: Droperidol 5 mg/2 ml Vial IV ONE (11:50)
[2024-08-01] MEDS ORDERED: OxyCODONE HCL 5 MG TAB PO PRN (12:00)
[2024-08-01] MEDS ORDERED: OxyCODONE HCL 5 MG TAB PO ONE (12:00)
[2024-08-01] MEDS ORDERED: CefTRIAXone Sodium 2,000 MG in NS 100 ML IV SCH (14:00)
--- NOTE | 2024-08-01 14:26 | NUR ---
PATIENT COMPLAINS OF NAUSEA. ADMIN DEPRODOLOL PER MD ORDER FOR SAME. IV ANTIBIOTICS INFUSING ORDERED. PATIENT WORKS WITH PT TODAY. PHYSICAL TTHERAPY HAS QUESTIONS ABOUT WHAT SHOE HE NEEDS TO WEAR AND WILL SPEAK WITH PODIATRY. PATIENT IS INDEPENDANT IN ROOM. USES FWW TO GO TO RESTROOM. NADN. HE IS MEDICATED WITH OXYCODONE 10MG PO FOR PAIN. FENTANYL IV HAS BEEN DISCONTINUED. PER PATIENT HE HAS ASSISTANCE AT HOME WHEN HE DOES DISCHARGE. HE IS NOT RECEPTIVE TO GOING TO REHAB. VITAL SIGNS ARE STABLE AND WNL. HE IS NOT FEBRILE. HE REMAINS ON ROOM. WILL CONTINUE TO MONITOR THIS PATIENT CLOSELY FOR ANY WANTS OR NEEDS THAT COME UP PRIOR TO REPORT AND HAND OFF TO NOC SHIFT RN.
[2024-08-01 15:47] VITALS: BP 141/86
[2024-08-01 19:23] VITALS: BP 142/75
[2024-08-02 02:56] VITALS: BP 145/91
--- NOTE | 2024-08-02 04:03 | NUR ---
SHIFT SUMMARY ADMITTED FOR OSTEOMYELITIS OF THE RIGHT FOOT. FULL CODE. AMPUTATION OF RT FIFTH TOE PERFORMED 07/31/2024. PODIATRY CONSULT IS DR. GOMEZ. HE IS INDEPENDENT IN ROOM W/FWW, ON RA, ADA DIET. ACHS CBG'S, LOW SS. PO PAIN RX GIVEN THIS SHIFT, MAALOX GIVEN THIS SHIFT. HE SEEMED OBSESSED WITH TAKING LONG HOT SHOWERS ON PREVIOUS SHIFTS. THIS SHIFT HE STATED HE HAD SOILED HIS CLOTHES AND REQUIRED ANOTHER SHOWER. HE REQUESTS TO KNOW EARLY IF HE IS DISCHARGING, HIS RIDE HAS A LONG WAY TO DRIVE TO PICK HIM UP.
[2024-08-02 05:44] LABS: Hemoglobin 14.5 g/dL (13.5-17.5); Mean Corpuscular HGB Conc 35.4 g/dL (31.5-36.5); Mean Corpuscular Volume 85 fL (80-100); Mean Platelet Volume 10.3 fL (9.1-12.4); Platelet Count 205 K/mm3 (150-400); RDW Coefficient Variation 12.5 % (11.7-14.2); RDW Standard Deviation 38.3 fL (35.1-46.3); Red Blood Cell Count 4.84 M/mm3 (4.30-5.90); White Blood Cell Count 8.52 K/mm3 (4.00-11.30)
[2024-08-02 06:15] LABS: Calcium, Blood 8.5 mg/dL (8.5-10.1); Creatinine, Blood 0.6 mg/dL (0.60-1.20); Potassium, Blood 3.6 mmol/L (3.5-5.5)
[2024-08-02 07:12] VITALS: BP 144/92
[2024-08-02] MEDS ORDERED: Arginine/Glutamine/Calcium Hmb 1 Packet PO ONE (10:35)
[2024-08-02] MEDS ORDERED: AMOX-CLAV ER 11 EAC1 PO (13:08)
[2024-08-02] MEDS ORDERED: OXAYDO5 M1 PO (13:11)
[2024-08-02] MEDS ORDERED: VISBIOME 112.51 EACH PO (13:12)
[2024-08-02] MEDS ORDERED: Nicoderm Cq1 EAC1 TOP (13:12)
[2024-08-02] MEDS ORDERED: Ondansetron 4 MG SoluTab MM PRN (13:25)
[2024-08-02] MEDS ORDERED: Amoxicillin 500 MG Cap PO ONE (16:00)
--- NOTE | 2024-08-02 16:39 | NUR ---
PT DISCHARGED WITH DC INSTRUCTIONS 1530. HAS WRITTEN SCRIPT FOR [facility] CONDENSER OPERATOR SCRIPT IN AM. GIVEN A DOSE OF ABX BEFORE DC. STATES HE WILL BE OK WITH IBUPROFEN FOR PAIN UNTIL HE GETS SCRIPT FILLED. PT TOLERATING FOOD AND FLUID. VOIDING WITHOUT DIFFICULTY. AWARE OF IMPORTANCE TO CONT TAKING ABX FOR 6 WEEKS WITH OSTEO INFECTION. AND THAT ADDITIONAL SURGERY MAY BE NEEDED IN THR FUTURE. PT REFUSED WHEELCHAIR AND AMBULATED INDEPENDANTLY OUT TO PRIVATE CAR FOR DC HOME TO [facility].
== END 2024-08-02 15:26 | disposition home or self-care (01) | DRG 617 ==
LOC: MEDS 18:22 → ENPENDDIS 08-02 13:26 → MEDS 08-02 15:26
PROVIDERS: Family Medicine; Internal Medicine; Podiatrist Foot & Ankle Surgery; ADMIT Student in an Organized Health Care Education/Training Program
PROC: 0Y6M0ZF Detachment at Right Foot, Partial 5th Ray, Open Approach (ICD-10-PCS; principal; 2024-07-31 12:00)
DX: E11.69 Type 2 diabetes mellitus with other specified complication (principal); M86.8X7 Other osteomyelitis, ankle and foot; E11.621 Type 2 diabetes mellitus with foot ulcer; L97.519 Non-pressure chronic ulcer of other part of right foot with unspecified severity; F17.210 Nicotine dependence, cigarettes, uncomplicated; E11.43 Type 2 diabetes mellitus with diabetic autonomic (poly)neuropathy; K31.84 Gastroparesis; F12.90 Cannabis use, unspecified, uncomplicated; E11.10 Type 2 diabetes mellitus with ketoacidosis without coma; Z90.49 Acquired absence of other specified parts of digestive tract; Z86.14 Personal history of Methicillin resistant Staphylococcus aureus infection; Z79.4 Long term (current) use of insulin; Z79.899 Other long term (current) drug therapy
CPT/HCPCS: 36415; 73720; 80048; 80053; 80202; 82010; 82803; 82947; 83036; 83605; 83690; 83735; 85025; 85027; 85651; 86141; 87070; 87071; 87075; 87147; 87205; 88305; 88311; 94760; 94762; 97165; 97530; A9270; A9579; J0696; J1650; J1790; J1815; J2001; J2405; J2470; J2543; J2704; J2765; J3010; J3370; J7040; J7050; J7120

== ENCOUNTER 2024-10-13 11:47 | Inpatient (IN) | payer OTHER ==
[~2024-10-13] VITALS: Ht 185.4 cm; Wt 75.6 kg
[~2024-10-13 11:47] MED LIST changes: +AMOX-CLAV ER 11 EAC1 PO; -Lactated Ringer's 1,000 ML IV SCH; +Nicoderm Cq1 EAC1 TOP; +OXAYDO5 M1 PO; +VISBIOME 112.51 EACH PO
[2024-10-13 12:19] LABS: Bicarbonate Venous 26.7 mmol/L (24.0-30.0); PCO2 Venous 41.6 mmHg (38-42); pH Blood Venous 7.43 (7.34-7.37)
[2024-10-13 12:35] LABS: BASOPHILS ABSOLUTE AUTO 0.04 K/mm3 (0.00-0.23); BASOPHILS PERCENT AUTO 0 % (0-2); EOSINOPHILS PERCENT AUTO 0 % (0-6); Hematocrit 44.4 % (37.0-53.0); Hemoglobin 15.5 g/dL (13.5-17.5); IMMATURE GRAN ABSOLUTE AUTO 0.11 K/mm3 (0.00-0.10); IMMATURE GRAN PERCENT AUTO 1 % (0-1); LYMPHOCYTES ABSOLUTE AUTO 2.19 K/mm3 (0.84-5.20); LYMPHOCYTES PERCENT AUTO 11 % (21-46); MONOCYTES ABSOLUTE AUTO 1.53 K/mm3 (0.16-1.47); MONOCYTES PERCENT AUTO 8 % (4-13); Mean Corpuscular HGB 30.5 pg (26.0-34.0); Mean Corpuscular HGB Conc 34.9 g/dL (31.5-36.5); Mean Corpuscular Volume 87 fL (80-100); NEUTROPHILS ABSOLUTE AUTO 15.93 K/mm3 (1.96-9.15); NEUTROPHILS PERCENT AUTO 80 % (41-73); Platelet Count 177 K/mm3 (150-400); RDW Coefficient Variation 12.8 % (11.7-14.2); RDW Standard Deviation 40.8 fL (35.1-46.3); Red Blood Cell Count 5.09 M/mm3 (4.30-5.90)
[2024-10-13 13:02] LABS: Albumin, Blood 3.6 g/dL (3.4-5.0); Albumin/Globulin Ratio 0.9 (0.8-1.8); Beta-hydroxybutyrate 14.8 mg/dL (0.2-2.8); Bilirubin, Total 0.9 mg/dL (0.1-1.0); Bun/Creatinine Ratio 44.7 (12.0-20.0); Calcium, Blood 9.7 mg/dL (8.5-10.1); Creatinine, Blood 0.92 mg/dL (0.60-1.20); Globulin, Blood 4.2 g/dL (2.2-4.0); Potassium, Blood 4.7 mmol/L (3.5-5.5); Total Protein, Blood 7.8 g/dL (6.4-8.2)
[2024-10-13] MEDS ORDERED: CefTRIAXone Sodium 1,000 MG in NS 100 ML IV ONE ×2 (13:25→16:55)
[2024-10-13] MEDS ORDERED: Piperacillin/Tazobactam Sod 4.5 GM in NS 100 ML IV ONE (13:25)
[2024-10-13] MEDS ORDERED: Vancomycin HCL 1,750 MG in NS 500 ML IV ONE (13:40)
[2024-10-13] MEDS ORDERED: Morphine Sulfate 4 MG/1 ML Injection IV ONE (13:55)
[2024-10-13] MEDS ORDERED: Metoclopramide HCl 5MG / ML 2ML Vial IV STA (14:38)
[2024-10-13] MEDS ORDERED: NS 2,000 ML IV SCH (14:40)
[2024-10-13] MEDS ORDERED: Acetaminophen 325 MG TABLET PO PRN (14:40)
[2024-10-13] MEDS ORDERED: Ondansetron HCl 2 MG / ML 2ML Vial IV PRN (14:40)
[2024-10-13] MEDS ORDERED: NS 1,000 ML IV SCH ×2 (14:50→16:00)
[2024-10-13] MEDS ORDERED: Metoclopramide HCl 5MG / ML 2ML Vial IV PRN (15:00)
[2024-10-13 16:26] VITALS: BP 127/85
[2024-10-13] MEDS ORDERED: ADMELOG SO100 UNIT/2 SC (16:44)
[2024-10-13] MEDS ORDERED: HYDROmorphone HCl/Pf 1MG SYR IV PRN (16:45)
[2024-10-13] MEDS ORDERED: Benzonatate 100 MG Cap PO PRN (16:45)
[2024-10-13] MEDS ORDERED: Albuterol 2.5 MG/3 ML VIAL INH PRN (16:45)
[2024-10-13] MEDS ORDERED: Azithromycin 250 MG Tab PO SCH (17:00)
[2024-10-13] MEDS ORDERED: FLU VACC TS2024-25(6MOS UP)/PF 45 MCG/0.5 ML SYRINGE IM ONE (17:00)
[2024-10-13 17:23] LABS: Albumin, Blood 3.1 g/dL (3.4-5.0); Anion Gap 12 mmol/L (3-11); Blood Urea Nitrogen 34 mg/dL (8-24); CO2, Blood 26 mmol/L (21-32); Calcium, Blood 8.7 mg/dL (8.5-10.1); Chloride, Blood 102 mmol/L (98-108); Creatinine, Blood 0.71 mg/dL (0.60-1.20); Glomerular Filtration Rate 122 (60-); Glucose, Blood 311 mg/dL (70-99); Phosphorus, Blood 3.2 mg/dL (2.5-4.9); Potassium, Blood 4.3 mmol/L (3.5-5.5); Sodium, Blood 136 mmol/L (136-145)
--- NOTE | 2024-10-13 18:26 | NUR ---
ADMISSION NOTE/SHIFT SUMMARY PATIENT ARRIVED FROM ED IN [facility], ABLE TO TRANSFER TO HOSPITAL BED INDEPENDENTLY. COMPLAINING OF CHEST AND ABDOMINAL PAIN 8/10 AND NAUSEA. PRN ZOFRAN AND TYLENOL ADMINISTERD. DR. WONG CALLED AND REQUESTED PAIN MEDICATION. PRN DILAUDID ADMINISTERED. PATIENT ORIENTED TO ROOM, CALL LIGHT WITHIN REACH. ANTIBIOTICS ADMINISTERED PER DEC. IV FLUIDS RUNNING PER ORDER. WOUND CARE PROVIDED TO RIGHT DIABETIC FOOT WOUND AND PICTURES OBTAINED. ADMISSION DOCUMENTATION COMPLETED. PATIENT PROVIDED WITH DINNER AND HEAT PACK. PATIENR RESTING COMFORTABLY IN BED. INFORMED PATIENT THAT SPUTUM SAMPLE IS NEEDED. NO OTHER CONCERNS AT THIS TIME.
[2024-10-13 19:13] VITALS: BP 115/72
[2024-10-13 19:48] LABS: Adenovirus Not Detected (NOT DETECT); Bordetella pertussis Not Detected (NOT DETECT); Chlamydophila pneumoniae Not Detected (NOT DETECT); Coronavirus 229E Not Detected (NOT DETECT); Coronavirus HKU1 Not Detected (NOT DETECT); Coronavirus NL63 Not Detected (NOT DETECT); Coronavirus OC43 Not Detected (NOT DETECT); Human Metapneumovirus Not Detected (NOT DETECT); Human Rhinovirus/Enterovirus Detected (NOT DETECT); Influenza A/2009-H1 Not Detected (NOT DETECT); Influenza A/H1 Not Detected (NOT DETECT); Influenza A/H3 Not Detected (NOT DETECT); Influenza B Not Detected (NOT DETECT); Mycoplasma pneumoniae Not Detected (NOT DETECT); Parainfluenza Virus 1 Not Detected (NOT DETECT); Parainfluenza Virus 2 Not Detected (NOT DETECT); Parainfluenza Virus 3 Not Detected (NOT DETECT); Parainfluenza Virus 4 Not Detected (NOT DETECT); Respiratory Syncytial Virus Not Detected (NOT DETECT); SARS-Cov-2 (COVID-19), BioFire Not Detected (NOT DETECT)
[2024-10-13] MEDS ORDERED: Lactobacil 2-S.Thermo-Bifido 1 1 Cap PO SCH (21:00)
[2024-10-13] MEDS ORDERED: GuaiFENesin 600 MG TabCR PO SCH (21:00)
[2024-10-14] MEDS ORDERED: Prochlorperazine Edisylate 10 mg Vial IV PRN (00:20)
[2024-10-14] MEDS ORDERED: NAPR500EC PO (01:11)
[2024-10-14] MEDS ORDERED: JARDIANCE25 MG PO (01:13)
[2024-10-14] MEDS ORDERED: OMEP20ER PO (01:13)
[2024-10-14 04:58] LABS: BASOPHILS ABSOLUTE AUTO 0.04 K/mm3 (0.00-0.23); BASOPHILS PERCENT AUTO 0 % (0-2); EOSINOPHILS ABSOLUTE AUTO 0.03 K/mm3 (0.00-0.68); EOSINOPHILS PERCENT AUTO 0 % (0-6); Hematocrit 40.6 % (37.0-53.0); Hemoglobin 14.1 g/dL (13.5-17.5); IMMATURE GRAN ABSOLUTE AUTO 0.07 K/mm3 (0.00-0.10); IMMATURE GRAN PERCENT AUTO 1 % (0-1); LYMPHOCYTES ABSOLUTE AUTO 2.43 K/mm3 (0.84-5.20); LYMPHOCYTES PERCENT AUTO 16 % (21-46); MONOCYTES ABSOLUTE AUTO 1.06 K/mm3 (0.16-1.47); MONOCYTES PERCENT AUTO 7 % (4-13); Mean Corpuscular HGB 30.7 pg (26.0-34.0); Mean Corpuscular HGB Conc 34.7 g/dL (31.5-36.5); Mean Corpuscular Volume 88 fL (80-100); Mean Platelet Volume 10.6 fL (9.1-12.4); NEUTROPHILS PERCENT AUTO 76 % (41-73); Platelet Count 163 K/mm3 (150-400); RDW Coefficient Variation 12.8 % (11.7-14.2); RDW Standard Deviation 41.4 fL (35.1-46.3); White Blood Cell Count 15.13 K/mm3 (4.00-11.30)
[2024-10-14 05:00] VITALS: BP 149/94
[2024-10-14 05:28] LABS: Bun/Creatinine Ratio 37.9 (12.0-20.0); Calcium, Blood 8.8 mg/dL (8.5-10.1); Creatinine, Blood 0.63 mg/dL (0.60-1.20); Potassium, Blood 4.3 mmol/L (3.5-5.5)
--- NOTE | 2024-10-14 07:43 | NUR ---
SHIFT SUMMARY FOR 7P TO 7A A7OX4,RESTED POORLY OVERNIGHT DUE TO PAIN AND NAUSEA, REPORTED PRN DILAUDID 0.5MG EFFECTIVE & BRINGS PAIN FROM 8/10 TO 4/10 HOWEVER DOES NOT LAST 4 HRS, DECLINED ACETAMINOPHEN, REPORTED ZOFRAN AND REGLAN ONLY HELPING NAUSEA A LITTLE, MD NOTIFIED AND NEW ORER FOR COMPAZINE PRN, NO VOMITING ,LUNG SOUND DIMINISHED W/ FAINT CRACKLES RLL, PAIN IS IN CHEST AND ABD,ESPECIALLY CHEST& DESCRIBES STABBING &BURNING, NOT TOLERATING ANYTHING PO EXCEPT WATER, SMALL AMT SPRITE &APPLE JUICE X1, CBGS DONE EVERY 4 HRS AND HAVE BEEN BETWEEN 215 AND 256. DENIES ANY PAIN TO TOE AMPUTATION SITE AND DRESSING CD&I TO FOOT. SPUTUM COLLECTED & SENT TO LAB EARLY IN SHIFT, NASAL SWAB RESULTS SHOWED +RHINOVIRUS-DROPLET PRECAUTIONS INITIATED & MD NOTIFIED. REQUESTS PAIN MED DOSE OR FREQUENCY BE INCREASED,RELAYED TO ONCOMING RN & WRITTEN ON WHITE BOARD. MED BE INCREASED NOTIFIED, SHIFT IN 200s
[2024-10-14 07:55] VITALS: BP 133/82
--- NOTE | 2024-10-14 08:37 | NUR ---
CALLED MD THIS MORNING TO REQUEST INSULIN ORDERS. INCREASE PATIENT'S PAIN MEDICATION AND CHANGE Q4 CBG TO ACHS. MD STATED SHE WAS BUSY AT THE MOMENT. MD CALLED AGAIN AND LEFT MESSAGE 30 MINUTES LATER. PATIENT'S BLOOD SUGAR 311 THIS AM, PAIN 9/10 WITH PRN DILAUDID 0.5 MG ADMINISTERED AROUND 0600 THIS AM. PATIENT WITH NO SCHEDULED INSULIN AT THIS TIME. WILL CALL MD AGAIN IN 30 MINS IF NO NEW ORDERS.
[2024-10-14] MEDS ORDERED: CefTRIAXone Sodium 2,000 MG in NS 100 ML IV SCH (09:00)
[2024-10-14] MEDS ORDERED: Enoxaparin 40 MG/0.4 ML SYR SC SCH (09:00)
[2024-10-14] MEDS ORDERED: Pantoprazole Sodium 40 MG Injection IV SCH (11:00)
[2024-10-14] MEDS ORDERED: Insulin Human Lispro 100 Units/ML 3ML Syringe SC SCH (11:30)
[2024-10-14 15:10] VITALS: BP 129/74
--- NOTE | 2024-10-14 18:22 | NUR ---
SHIFT SUMMARY PATIENT A/OX4, ABLE TO MAKE NEEDS KNOWN. INDEPENDENT IN ROOM. CONTINUES WITH PRN NAUSEA MEDICATIONS INCLUDING ZOFRAN, COMPAZINE, AND REGLAN. REFUSING MEALS DUE TO NAUSEA. CBGs CHANGED FROM Q4H TO ACHS, ORDERS FOR SLIDING SCALE INSULIN STARTED THIS AFTERNOON AT LUNCH. MD NOTIFIED OF NO ORDERS THIS AM. DAILY WOUND CARE PROVIDED, PATIENT TOLERATED WELL. CT OBTAINED OF PATIENT'S ABDOMEN AND CHEST DUE TO CONTINUED PAIN. PRN DILAUDID ADMINISTERED PER DEC. TELEMETRY IN PLACE, NO EVENTS THIS SHIFT. NO OTHER CONCERNS AT THIS TIME.
[2024-10-14] MEDS ORDERED: NS 250 ML IV PRN (19:15)
[2024-10-14 20:19] VITALS: BP 154/87
[2024-10-15 02:33] VITALS: BP 161/92
--- NOTE | 2024-10-15 03:11 | NUR ---
SHIFT SUMMARY PT CONTINUES ON DROPLET ISOLATION D/T DX OF RHINO VIRUS. PT IS ON RA, LUNGS DIMINISHED UL'S, FINE CRACKLES ON LL'S. PT IS A&O X4, COOPERATIVE WITH CARE, ABLE TO MAKE HIS NEEDS KNOWN. PRN IV DILAUDID 0.5MG Q4HR ADMINISTERED T/O THIS SHIFT. PT C/O 8/10 LUNGS/CHEST AREA AND ABDOMINAL PAIN. PT REPORTS PAIN GOES DOWN TO 4/10 WITH THIS MEDICATION. PT REFUSES PRN TYLENOL PO "IT DOESN'T DO ANYTHING FOR ME," PER PT STATEMENT. @HS PT'S TWO CHILDREN AND THE CHILDREN'T MOTHER VISITING BRIEFLY WITH THE PT. HS B. TELE: SR @75. PT CONTINUES TO HAVE NAUSEA, REFUSES ZOFRAN IV D/T NOT EFFECTIVE. IV COMPAZINE AND IV REGLAN ADMINISTERED ORDERED. NO VOMIT DURING THIS SHIFT. PT HAS A POOR PO INTAKE- PT DID HAVE 480MLS BROTH. NO ACUTE EVENTS DURING THIS SHIFT. BED AT THE LOWEST POSITION, CALL LIGHT WITHIN REACH. PT RESTING FEW HRS DURING THE RADIUS GRINDER.
[2024-10-15 07:35] VITALS: BP 159/91
[2024-10-15 08:40] LABS: BASOPHILS ABSOLUTE AUTO 0.05 K/mm3 (0.00-0.23); BASOPHILS PERCENT AUTO 0 % (0-2); EOSINOPHILS ABSOLUTE AUTO 0.02 K/mm3 (0.00-0.68); EOSINOPHILS PERCENT AUTO 0 % (0-6); Hematocrit 42.6 % (37.0-53.0); Hemoglobin 14.8 g/dL (13.5-17.5); IMMATURE GRAN ABSOLUTE AUTO 0.07 K/mm3 (0.00-0.10); IMMATURE GRAN PERCENT AUTO 1 % (0-1); LYMPHOCYTES ABSOLUTE AUTO 1.85 K/mm3 (0.84-5.20); LYMPHOCYTES PERCENT AUTO 14 % (21-46); MONOCYTES ABSOLUTE AUTO 0.99 K/mm3 (0.16-1.47); MONOCYTES PERCENT AUTO 8 % (4-13); Mean Corpuscular HGB 30.2 pg (26.0-34.0); Mean Corpuscular HGB Conc 34.7 g/dL (31.5-36.5); Mean Corpuscular Volume 87 fL (80-100); Mean Platelet Volume 10.5 fL (9.1-12.4); NEUTROPHILS ABSOLUTE AUTO 9.85 K/mm3 (1.96-9.15); NEUTROPHILS PERCENT AUTO 77 % (41-73); Platelet Count 152 K/mm3 (150-400); RDW Coefficient Variation 12.2 % (11.7-14.2); RDW Standard Deviation 39.1 fL (35.1-46.3); White Blood Cell Count 12.83 K/mm3 (4.00-11.30)
[2024-10-15 08:54] LABS: Albumin, Blood 3.1 g/dL (3.4-5.0); Anion Gap 13 mmol/L (3-11); Blood Urea Nitrogen 16 mg/dL (8-24); Bun/Creatinine Ratio 29.5 (12.0-20.0); CO2, Blood 22 mmol/L (21-32); Chloride, Blood 105 mmol/L (98-108); Creatinine, Blood 0.54 mg/dL (0.60-1.20); Glomerular Filtration Rate 132 (60-); Glucose, Blood 206 mg/dL (70-99); Phosphorus, Blood 1.5 mg/dL (2.5-4.9); Potassium, Blood 4.2 mmol/L (3.5-5.5); Sodium, Blood 136 mmol/L (136-145)
[2024-10-15] MEDS ORDERED: Potassium Phosphate Dibasic 30 MM in Dextrose 5% 500 ML IV STA (09:42)
[2024-10-15] MEDS ORDERED: OxyCODONE 5 mg/Acetamin 325 mg TABLET PO PRN (10:45)
[2024-10-15] MEDS ORDERED: Polyethylene Glycol 3350 17 gm PO PRN (10:50)
[2024-10-15] MEDS ORDERED: Metoclopramide HCl 10 MG Tab PO SCH (11:30)
[2024-10-15 14:57] VITALS: BP 129/81
--- NOTE | 2024-10-15 17:51 | NUR ---
SHIFT SUMMARY PATIENT A/OX4, ABLE TO MAKE NEEDS KNOWN. PATIENT CONTINUES WIHT NAUSEA, BUT APPETITE HAS IMPROVED THIS SHIFT. ABLE TO EAT LUNCH AND HAVE SNACKS THIS EVENING, BUT THE NAUSEA WORSENED POST MEALS. CONTINUES WITH PRN NAUSEA MEDICATION AND PAIN MEDICATION FOR ABDOMINAL/CHEST PAIN. TELEMETRY DISCONTINUED AND PATIENT NOW WITH SCHEDULED REGLAN PRIOR TO MEALS. NEW PIV PLACED TO LEFT FA. POTASSIUM PHOSPHATE ADMINISTERED PER DEC. WOUND CARE PROVIDED TO RIGHT FOOT AND NEWLY DEVELOPED BLISTER TO LEFT FOOT. MD AWARE OF FLUID FILLED BLISTER AND MEPILEX IN PLACE. CONTINUES WITH DROPLET PRECAUTIONS FOR RHINOVIRUS. NO OTHER CONCERNS AT THIS TIME.
[2024-10-15 20:43] VITALS: BP 131/84
[2024-10-15] MEDS ORDERED: Insulin Glargine-Yfgn 100 Unit/mL 3 ML SYR SC SCH (21:00)
[2024-10-16 00:50] VITALS: BP 153/95
--- NOTE | 2024-10-16 03:18 | NUR ---
SHIFT SUMMARY PT C/O NAUSEA, PRN ANTIEMETICS ADMINISTERED ORDERED. PT C/O CHEST PAIN "LIKE INDEGESTION" PER PT STATEMENT. VSS, ENTRY LEVEL FINANCIAL ANALYST NOTIFIED. MEDICATED WITH PRN PERCOCET 10MG PO WITH GOOD EFFECTIVNESS. NO VOMIT DURING THIS SHIFT. SOME COUGHING, PRODUCTIVE, LIGHT GREEN IN COLOR. LUNG SOUNDS DIMINISHED AT BASES PER AUSCULTATION. WOUND CARE COMPLETED ORDERED. DRESSING IN RIGHT FOOT INTACT. PT RATES RIGHT LEG, ABDOMINAL AND CHEST AREA PAIN 8.5/10. HS B, GLARGINE ADMINISTERED ORDERED. NO ACUTE EVENTS DURING THIS SHIFT. BED AT THE LOWEST POSITION, CALL LIGHT WITHIN REACH. PT AMBULATES INDEPENDENTLY WITHIN THE HOSPITAL ROOM, AND CONTINUES ON DROPLET ISOLATION D/T DX OF ENTERO- AND RHINOVIRUS. PT IS COOPERATIVE WITH CARE. PT IS ABLE TO MAKE HIS NEEDS KNOWN.
[2024-10-16 06:09] LABS: Albumin, Blood 3.1 g/dL (3.4-5.0); Anion Gap 14 mmol/L (3-11); Blood Urea Nitrogen 14 mg/dL (8-24); Bun/Creatinine Ratio 26.3 (12.0-20.0); CO2, Blood 23 mmol/L (21-32); Calcium, Blood 9.1 mg/dL (8.5-10.1); Chloride, Blood 103 mmol/L (98-108); Creatinine, Blood 0.53 mg/dL (0.60-1.20); Glomerular Filtration Rate 133 (60-); Glucose, Blood 207 mg/dL (70-99); Sodium, Blood 136 mmol/L (136-145)
[2024-10-16 07:17] VITALS: BP 112/68
[2024-10-16] MEDS ORDERED: Potassium Phosphate Dibasic 30 MM in Dextrose 5% 500 ML IV STA (07:46)
[2024-10-16 08:42] VITALS: BP 152/98
[2024-10-16 14:21] VITALS: BP 135/79
--- NOTE | 2024-10-16 18:22 | NUR ---
SHIFT SUMMARY- PT CHEST AND EPIGASTRIC PAIN RESOLVED EARLIER IN THE DAY, HE DECLINED THE SCHEDULED DOSE OF REGLAN THIS EVENING STATING HE HAS NO PAIN. PT ASKED ABOUT GOING HOME AND BECAME A BIT IRRITABLE AND ANXIOUS. SPOKE TO PT ABOUT HOW MUCH HE SMOKES AND HE STATES HE SMOKES A PACK ABOUT EVERY THREE DAYS. OFFERED TO CALL FOR NICOTIENE REPLACEMENT AND HE REFUSED, HE STATES THE PATCHES, LOZENGES, AND THE GUM DO NOT HELP WITH HIS CRAVINGS. ONCE THE PT PHOSPHATE WAS COMPLETED HE PUT ON A MASK AND HIS SLIPPERS AND HAS BEEN WALKING IN THE HALLS. DRESSINGS WERE CHANGED THIS MORNING AND STILL APPEAR C/D/I. PT IS CURRENTLY IN HIS ROOM SITTING IN A CHAIR WITH TIFFANY LEONE AND DALE AT THE BEDSIDE. ORDER FOR PICC LINE PLACEMENT RECIEVED THIS EVENING. PLAN IS FOR PT TO DISCHARGE WITH 6 WEEKS OF IV ABX Tx TOMORROW AFTER PICC IS PLACED AND FIRST DOSE OF ABX ARE RAN THROUGH THE PICC. NO CURRENT S&S OF DISTRESS NOTED. WILL PASS ON TO NIGHT RN IN BEDSIDE REPORT.
[2024-10-16 19:35] VITALS: BP 149/86
[2024-10-16] MEDS ORDERED: Famotidine 20 MG Tab PO ONE (23:15)
--- NOTE | 2024-10-17 03:11 | NUR ---
SHIFT SUMMARY NO ACUTE EVENTS DURING THIS SHIFT. NEW ORDER FOR PEPCID 10MG PO BID RECEIVED, AND NOW ORDER ADMINISTERED DURING THIS SHIFT. PT C/O EPIGASTRIC PAIN AND "BURNING" IN THE MIDLINE OF THE CHEST AREA. EFFECTIVE. PRN COMPAZINE AND PRN PERCOCET ADMINISTERED ONCE WITH GOOD EFFECTIVNESS PER PT REPORT. RIGHT FOOT DRESSING C/D/I. NO COMPLAINTS OF PAIN R/T RIGHT FOOT DURING THIS SHIFT. PLAN IS TO GET A PICC LINE AND D/C TODAY PER PREVIOUS SHIFT RN REPORT. BED AT THE LOWEST POSITION, CALL LIGHT WITHIN REACH. PT IS ABLE TO MAKE HIS NEEDS KNOWN AND COOPERATIVE WITH CARE. CONTINUING PT EDUCATION.
[2024-10-17 04:22] VITALS: BP 124/78
[2024-10-17 05:46] LABS: Albumin, Blood 3.1 g/dL (3.4-5.0); Anion Gap 11 mmol/L (3-11); Blood Urea Nitrogen 11 mg/dL (8-24); Bun/Creatinine Ratio 19.8 (12.0-20.0); CO2, Blood 25 mmol/L (21-32); Calcium, Blood 9.4 mg/dL (8.5-10.1); Chloride, Blood 104 mmol/L (98-108); Creatinine, Blood 0.56 mg/dL (0.60-1.20); Glomerular Filtration Rate 131 (60-); Glucose, Blood 209 mg/dL (70-99); Phosphorus, Blood 2.2 mg/dL (2.5-4.9); Potassium, Blood 3.6 mmol/L (3.5-5.5); Sodium, Blood 136 mmol/L (136-145)
[2024-10-17 07:52] VITALS: BP 111/74
[2024-10-17] MEDS ORDERED: Potassium Phosphate Dibasic 30 MM in Dextrose 5% 500 ML IV STA (08:21)
--- NOTE | 2024-10-17 08:47 | NUR ---
SPOKE TO DR WONG- PT IS ANXIOUS TO LEAVE THE HOSPITAL, HE NEEDS A PICC LINE PLACED PRIOR TO DISCHARGE AND HIS FIRST DOSE OF ABX THROUGH THE PICC LINE. PER CARE MANAGEMENT THE PT CAN THEN BE DISCHARGED AND HAVE HIS 6 WEEKS OF IV ABX OUT PATIENT IN [place]. THE PT HAS BEEN PACING SINCE YESTERDAY, AWAITING HIS DISCHARGE. NEW ORDER RECIEVED FOR A STAT DOSE OF POTASSIUM PHOSPHATE, WILL START RUNNING THROUGH PIV SOON PICC IS PLACED, ONCE PICC IS APROVED FOR USE THE PT CAN HAVE HIS IV ABX THROUGH THAT. SPOKE TO ABOUT CHANGING THE POTASSIUM PHOSPHATE TO PO. NO ORDER CHANGE AT THIS TIME.
[2024-10-17] MEDS ORDERED: Famotidine 20 MG Tab PO SCH (09:00)
[2024-10-17] MEDS ORDERED: CEFTRIAXON1 GM/50 M1 IV (11:39)
[2024-10-17] MEDS ORDERED: METO10 PO (11:39)
[2024-10-17] MEDS ORDERED: MIRALAX17 GM PO (11:40)
[2024-10-17] MEDS ORDERED: Mag Hydrox/AL Hydrox/Simeth 30 ML UDC PO ONE (12:45)
--- NOTE | 2024-10-17 14:44 | NUR ---
DISCHARGE UPON RETURNING FROM LUNCH BREAK. BREAK NURSE INFORMED THIS RN THAT THEY DISCHARGED PT.
== END 2024-10-17 14:39 | disposition home or self-care (01) | DRG 637 ==
LOC: ER 11:47 → MEDS 11:48
PROVIDERS: Student in an Organized Health Care Education/Training Program; ADMIT Internal Medicine
DX: E11.10 Type 2 diabetes mellitus with ketoacidosis without coma (principal); J18.9 Pneumonia, unspecified organism; E87.1 Hypo-osmolality and hyponatremia; M86.171 Other acute osteomyelitis, right ankle and foot; Z86.14 Personal history of Methicillin resistant Staphylococcus aureus infection; F17.210 Nicotine dependence, cigarettes, uncomplicated; Z90.49 Acquired absence of other specified parts of digestive tract; Z89.421 Acquired absence of other right toe(s); E11.43 Type 2 diabetes mellitus with diabetic autonomic (poly)neuropathy; K31.84 Gastroparesis; E11.69 Type 2 diabetes mellitus with other specified complication; E83.39 Other disorders of phosphorus metabolism; B97.89 Other viral agents as the cause of diseases classified elsewhere
CPT/HCPCS: 0202U; 36415; 36569; 71046; 71260; 73630; 74177; 80048; 80053; 80069; 82010; 82803; 82947; 83036; 83605; 83735; 84145; 84484; 85025; 85651; 86140; 87040; 87070; 87205; 93005; 93010; 94760; 96365; 96367; 96368; 96375; 99285-25; A9270; C1751; G0378; J0696; J0780; J1171; J1650; J1815; J2270; J2405; J2470; J2543; J2765; J3370; J7030; J7040; J7050; J7060; Q9967